=== PATIENT | male | born 1960 | race Caucasian/White ===

== ENCOUNTER 2018-08-09 15:30 | Inpatient (IN) | payer BC, OTHER ==
[2018-08-09] MEDS ORDERED: NS 0.9% 1000 ML*IV.FLUID IV ONE (16:13)
[2018-08-09] MEDS ORDERED: Vancomycin(*) 1,000 MG in NS 0.9% 250 ML* 250 ML IVPB ONE (16:14)
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
[2018-08-09 16:45] LABS: ABS Basophils 0 10^3/ul (0-0.2); ABS Eosinophils 0 10^3/ul (0-0.6); ABS Lymphocytes 0.3 10^3/ul (1.0-4.8); ABS Monocytes 0.5 10^3/ul (0-0.8); ABS Neutrophils 6.6 10^3/ul (1.5-7.7); ABS Nucleated RBC 0 10^3/ul; Eosinophil % 0.1 % (0-6); Hematocrit 40 % (42-52); Hemoglobin 13.2 g/dl (14.0-18.0); Lymphocyte % 3.7 % (25-47); Mean Corpuscular HGB Conc 33 g/dl (31-36); Mean Corpuscular Hemoglobin 25 pg (27-31); Mean Corpuscular Volume 77 fL (80-94); Mean Platelet Volume 6.3 um3 (7.4-10.4); Nucleated Red Blood Cells % 0; Platelet Count 192 10^3/ul (150-450); Red Blood Count 5.19 10^6/ul (4.00-5.40); Red Cell Distribution Width 15 % (10.5-15); White Blood Count 7.4 10^3/ul (3.5-10.8)
[2018-08-09 16:51] LABS: INR 1.25 (0.77-1.02)
[2018-08-09 17:02] LABS: EGFR Non-African American 118.9 (>60)
[2018-08-09] MEDS ORDERED: Acetaminophen TAB* 325 MG PO ONE (17:57)
[2018-08-09] MEDS ORDERED: Al Hydrox/Mg Hydrox/Simet LIQ* 30 ML UDC PO PRN (18:50)
[2018-08-09] MEDS ORDERED: Acetaminophen TAB* 325 MG PO PRN (18:50)
[2018-08-09] MEDS ORDERED: Ondansetron INJ* 2 MG/ML VIAL IV PRN (19:22)
[2018-08-09] MEDS ORDERED: Cefepime 2 GM in Dextrose(*) 2 GM/50 ML BAG IV SCH (20:00)
[2018-08-09 20:18] LABS: Urine Appearance Clear; Urine Blood Negative (Negative); Urine Color Yellow; Urine Ketones 1+ (Negative); Urine Protein Negative (Negative); Urine Specific Gravity 1.025 (1.010-1.030); Urine Urobilinogen Negative (Negative)
[2018-08-09] MEDS ORDERED: Gadoteridol* (CONTRAST) 279.3 MG/ML 10 ML IV ONE (20:44)
[2018-08-09] MEDS: NS 0.9% 1000 ML* 1,000 ML IV SCH (21:59)
[2018-08-09] MEDS: Cefepime 2 GM in Dextrose(*) 2 GM/50 ML BAG IV SCH (21:59)
[2018-08-09] MEDS ORDERED: Heparin VIAL(*) 5000 UNITS/ML VIAL (FIVE THOUSAND) SUBCUT SCH (22:00)
--- NOTE | 2018-08-09 22:06 | RAD ---
EXAM: MR Left Lower Extremity Without And With Intravenous Contrast, Foot CLINICAL HISTORY: 58 years old, male; Signs and symptoms; Cellulitis and other: Necrotic toe; Toes; Left; Patient HX: Worsening fever, n/v, and loss of appetite for past 3 days. Has a blister, redness, and swelling in left great toe with cellulitis of elft lower leg; Additional info: Necrotic toe / celulitis R/O osteomyelitis TECHNIQUE: Multiplanar magnetic resonance images of the left foot without and with intravenous contrast. CONTRAST: 18 mL of PROHANCE administered intravenously. COMPARISON: [facility] WO MRI LOWER EXTREMITY LEFT W/O 04/11/2018 7:06 AM FINDINGS: LIGAMENTS: Bones/joints: New transverse defect through the distal neck proximal phalanx of the great toe which may be pathologic fracture or postsurgical. Abnormal marrow signal involving majority of the proximal phalanx and all of the distal phalanx consistent with osteomyelitis. Surrounding cellulitis, and 8mm probable abscess interposed between the proximal and distal phalanx dorsally. Artifact surrounding the mid and distal phalanx of the third toe suggesting soft tissue gas less likely surgical or foreign body artifact. Cannot visualize the distal end of the distal phalanx and this may be resected or partially resorbed. Cannot exclude osteomyelitis the phalanx here. Soft tissues: Diffuse subcutaneous edema most pronounced dorsum of the foot. Some of this may be passive edema and some may be cellulitis. IMPRESSION: 1. New transverse defect through the distal neck proximal phalanx of the great toe which may be pathologic fracture or postsurgical. Abnormal marrow signal involving majority of the proximal phalanx and all of the distal phalanx consistent with osteomyelitis. Surrounding cellulitis, and 8mm probable abscess interposed between the proximal and distal phalanx dorsally. 2. Artifact surrounding the mid and distal phalanx of the third toe suggesting soft tissue gas less likely surgical or foreign body artifact. Cannot visualize the distal end of the distal phalanx and this may be resected or partially resorbed. Cannot exclude osteomyelitis distal phalanx here. 3. Diffuse subcutaneous edema most pronounced dorsum of the foot. Some of this may be passive edema and some may be cellulitis. To contact [facility] with a general question: [facility] - [phone] For direct physician to physician contact: Physician Hotline - [phone] [facility] (ad Facility ID #[id number])
--- NOTE | 2018-08-09 22:31 | HP ---
AMENDED REPORT NOW INCLUDES COSIGNER DESIGNATION CC: Dr. Peters; Dr. Carmen; Dr. Perez * HISTORY AND PHYSICAL: DATE OF ADMISSION: 08/09/18 PROVIDER: Debbie Green NP PRIMARY CARE PROVIDER: Dr. Perez. ATTENDING PHYSICIAN WHILE IN THE HOSPITAL: Dr. Guillermina Reeves * (dictated by Debbie Green NP). CHIEF COMPLAINT: 1. Fever. 2. Left foot and leg pain. HISTORY OF PRESENT ILLNESS: Mr. Andrews is a 58-year-old male who carries a past medical history significant for hypertension and diabetes, who presented to the emergency room after an episode of nausea and vomiting. The patient states that he was at work and started not feeling well, so he left work and went to [employer] and pulled into the parking lot and then started vomiting , so he was brought to the emergency room by EMS. The patient reports today he has had a 2 to 3-day history of feeling nauseated and reports that he started having fevers today. He denies any recent sick contacts. Denies any abdominal pain. Denies any diarrhea. Denies chest pain. Denies shortness of breath, chills. Denies cough or congestion. The patient reports that he noticed redness and swelling to his left third toe approximately 2 days ago and redness to his left lower leg. He denies any other symptoms. Due to his fever on admission to the emergency room and left lower extremity cellulitis, we were asked by the emergency room to see and evaluate him for admission. PAST MEDICAL HISTORY: Significant for: 1. Hypertension. 2. Diabetes, type 2. 3. Osteomyelitis of the left great toe in March of 2018. PAST SURGICAL HISTORY: 1. Tonsillectomy. 2. Cholecystectomy. 3. Stomach blockage. MEDICATIONS: 1. Farxiga 5 mg p.o. daily. 2. Losartan 50 mg p.o. daily. 3. Metformin 1000 mg p.o. b.i.d. 4. Glipizide 5 mg p.o. b.i.d. ALLERGIES TO MEDICATIONS: No known drug allergies. FAMILY HISTORY: Hypertension. SOCIAL HISTORY: Denies any smoking. Does report rare alcohol use. Denies any illicit drug use. Surrogate decision maker in the event he is unable to make his own decision is his daughterNieves. Her phone number is [phone] or his brother, Richard Andrews. His phone number is [phone]. He is a full-code. REVIEW OF SYSTEMS: There is documented fever of 101.5. He denies any significant weight change. Denies any double vision, ear drainage. Denies any rhinorrhea or sore throat. He denies any chest pain, orthopnea, nocturnal dyspnea. There was no abdominal pain. He denies nausea. He does report vomiting x1 today. Denies any dysuria or urinary frequency. Denies any seizures or loss of consciousness. He does report swelling and redness to his left foot and left lower leg. He denies any hematuria or dysuria. Denies any shortness of breath, hemoptysis, cough, or congestion. Denies any depression or anxiety. A review of 14 systems was completed and all others are negative. PHYSICAL EXAMINATION GENERAL: At this time, Mr. Andrews is a 58-year-old male. He appears flushed sitting on the stretcher in the emergency room. He does not appear to be in any acute distress. VITAL SIGNS: Blood pressure 150/82, heart rate is 126, respirations are 21, O2 saturation 97% on room air, temperature is 101.5. HEENT: Head is atraumatic, normocephalic. Eyes: EOMs are intact. Sclerae are anicteric and not pale. Oral mucosa appeared to be moist. NECK: Supple. LUNGS: Clear to auscultation bilaterally. No wheezes, rales or rhonchi. HEART: S1, S2. He has tachycardia with a regular rate and rhythm. No murmurs , rubs, or gallops. ABDOMEN: Soft and nontender. Bowel sounds are present x4. EXTREMITIES: Pulses are +2 bilaterally. He is able to move all 4 extremities with 5/5 strength. NEUROLOGIC: He is awake, alert, and oriented x3. Tongue is midline. Speech is clear. There are no gross focal deficits. SKIN: Left lower extremity is noted to be red, warm to touch. His left foot with erythema and mild edema. His left great toe is black with necrotic foul- smelling odor, appears moist;,no drainage. DIAGNOSTIC STUDIES AND LABORATORY DATA: WBCs were 7.4, RBCs 5.19, hemoglobin 13.2, hematocrit was 40, platelet count was 192. INR was 1.25. Sodium 136, potassium 4.0, chloride 103, carbon dioxide was 23. Anion gap was 10. BUN was 8 and creatinine 0.68. Glucose was 146. Lactic acid 1.0. Calcium 8.5. ASTs were 13 and ALTs were 14. Troponin was 0.01. ESR and CRP are pending. Blood cultures are pending. EKG is pending at this time. Chest x-ray is also pending. ASSESSMENT AND PLAN: Mr. Andrews is a 58-year-old male who presented to the emergency room today with complaints of nausea, fever, and found to have cellulitis and necrotic third toe on the left lower extremity. He will be admitted inpatient for: 1. Cellulitis with necrotic third toe on the left. We will start him on vancomycin 1000 mg and then dosing per pharmacy. He will be given cefepime 2 g IV q.12 hours. I will get an MRI of his left lower extremity to evaluate for osteomyelitis. He recently in April of 2018 had an ASIYA. Radiologist impression was mild peripheral arterial occlusive disease, greater on the left than the right. I have also consulted Dr. Peters from Orthopedics for evaluation of his necrotic toe. I will consult Dr. Carmen in the morning from Infectious Disease. At this time, blood cultures are pending. 2. Systemic inflammatory response syndrome. The patient does meet systemic inflammatory response syndrome criteria. I suspect this is related to the cellulitis and necrotic toe on the left. He is meeting systemic inflammatory response syndrome criteria by evidence by tachycardia, fever of 101.5 and respirations above 20. We have obtained blood cultures. We will continue on vanco and cefepime. We will repeat a CBC and BMP in the morning. ESR and CRPs are currently pending. I will give him IV hydration overnight, normal saline at 100 cc per hour. 3. Hypertension. He will continue on losartan 50 mg p.o. daily. 4. Diabetes. I will place him on Accu-Checks a.c. with lispro sliding scale. I have ordered hemoglobin A1c for the a.m. 5. DVT prophylaxis. I will give him heparin subcu 5000 units x1 dose tonight, be stopped after midnight for possible surgery tomorrow. 6. FEN. He will be placed on heart-healthy caffeine okay diet. He will be n.p.o. after midnight for possible surgery on tomorrow. 7. Code status. He is a full code. TIME SPENT: Time spent on this admission was 60 minutes, greater than half that time was spent face to face with the patient, obtaining my history and physical. The other half of the time was spent going over my plan of care and implementing my plan of care. I have discussed this with my attending, Dr. Guillermina Reeves, she is in agreement with my plan. DEBBIE GREEN, BUYING INTERN [id number]/CPS #: [id number] GIOVANNI
[2018-08-10 05:18] LABS: ABS Basophils 0 10^3/ul (0-0.2); ABS Eosinophils 0 10^3/ul (0-0.6); ABS Lymphocytes 0.6 10^3/ul (1.0-4.8); ABS Monocytes 0.7 10^3/ul (0-0.8); ABS Neutrophils 4.4 10^3/ul (1.5-7.7); ABS Nucleated RBC 0 10^3/ul; Eosinophil % 0.4 % (0-6); Hematocrit 36 % (42-52); Hemoglobin 11.9 g/dl (14.0-18.0); Lymphocyte % 11.1 % (25-47); Mean Corpuscular HGB Conc 33 g/dl (31-36); Mean Corpuscular Hemoglobin 25 pg (27-31); Mean Corpuscular Volume 77 fL (80-94); Mean Platelet Volume 6.2 um3 (7.4-10.4); Nucleated Red Blood Cells % 0.1; Platelet Count 168 10^3/ul (150-450); Red Cell Distribution Width 15 % (10.5-15); White Blood Count 5.8 10^3/ul (3.5-10.8)
[2018-08-10 05:27] LABS: INR 1.26 (0.77-1.02)
[2018-08-10 05:39] LABS: EGFR Non-African American 142.9 (>60)
[2018-08-10] MEDS: NS 0.9% 1000 ML* 1,000 ML IV SCH (07:33)
--- NOTE | 2018-08-10 07:47 | RAD ---
INDICATION: Sepsis. COMPARISON: Comparison is made with a prior study from October 22, 2017. TECHNIQUE: A portable view of the chest was obtained. FINDINGS: Cardiac and mediastinal contours appear to be within normal limits. The lungs are underinflated and grossly clear. No pleural effusion is seen. IMPRESSION: NO EVIDENCE FOR ACUTE DISEASE. R0
[2018-08-10] MEDS: Cefepime 2 GM in Dextrose(*) 2 GM/50 ML BAG IV SCH (10:20)
[2018-08-10] MEDS: Losartan TAB* 25 MG PO SCH (10:20)
[2018-08-10] MEDS: Piperacillin/Tazobac ADVAN(*) 3.375 GM in NS 0.9% 100 ML* 100 ML IVPB SCH ×3 (12:38→23:02)
--- NOTE | 2018-08-10 14:01 | PN ---
Progress Note - Progress Note Date of Service: 08/10/18 SOAP: Subjective: I created a note on 08/10/18 for this patient. It was saved without any contents. I then rewrote this note in the AM of 08/11/18 and its again was resaved minus any content. I will now write an abbreviated note for the 3rd time. Patient presented with a necrotic left 3rd toe. History left 1st toe osteo and ulcer treated by Nella, right 1st toe osteo treated by Nick. Objective: LLE: - 3rd toe black, necrotic, smelly, soft - 1st toe intact, no skin breaks, no TTP - Sensation intact but reduced in forefoot and toes - CR < 2 sec but DP, PT not easily palpable MRI- left 3rd toe fluid, liquefaction, osteo; 1st toe osteo Selected Entries 08/10/18 07:47 Temperature 99.0 F Pulse Rate 105 Respiratory 16 Rate Blood Pressure 115/60 (mmHg) O2 Sat by Pulse 98 Oximetry Laboratory Tests 08/09/18 08/10/18 08/10/18 20:17 04:42 04:42 WBC 5.8 Neut % (Auto) 75.7 ESR 43 H Hemoglobin A1c 10.0 H Assessment: HD 2 Left 3rd toe necrosis, osteomyelitis Left 1st toe chronic osteomyelitis DM Plan: - to OR for left 3rd toe amputation - NPO - ID recs for antibiotics - Pathology, cultures intraop
--- NOTE | 2018-08-10 14:58 | CONS ---
CONSULTATION REPORT: DATE OF ADMISSION: 08/09/18 DATE OF CONSULTATION: ATTENDING ORTHOPEDIC PROVIDER: Dr. Abdulaziz Peters. CHIEF COMPLAINT: Left foot third toe infection. HISTORY OF PRESENT ILLNESS: The patient is a 58-year-old male, with a past medical history of hypertension and diabetes. 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 The patient states that he has had a red progressing to black left middle toe for 2 to 3 days and that prior to this he has not had any pain, abrasions or discoloration of this toe. He reports that he has not had any other toe infections, though upon talking with infectious disease, he has had infection of both great toes in the past, for which he has been treated. The patient has not taken his temperature at home though has felt febrile. Confirms nausea and vomiting. The patient denies current feeling of fever, chills, dizziness, diarrhea or nausea. The patient has had surgery in the past at which time he tolerated anesthesia well. He has no history of heart attacks, stroke, or blood clot. He has been NPO since midnight last night. PAST MEDICAL HISTORY: Significant for hypertension, diabetes, osteomyelitis of the left great toe. PAST SURGICAL HISTORY: Includes tonsillectomy, cholecystectomy, stomach blockage. He has no negative side effects from anesthesia in the past. HOME MEDICATIONS: Glipizide 5 mg p.o. b.i.d., Farxiga 5 mg p.o. daily, losartan 50 mg p.o. daily, metformin 1000 mg p.o. b.i.d. SOCIAL HISTORY: The patient works at [employer]. He lives at home alone. He does not drink alcohol. He does not use any drugs. He does use alcohol rarely. REVIEW OF SYSTEMS: General: History positive for recent fever. Denies chills. Denies recent illness. HEENT: No headache. No head trauma. Cardio: No irregular heartbeats, chest pain, or history of KS. Respiratory: No shortness of breath or cough. No history of asthma, COPD, or sleep apnea. Abdomen: No abdominal pain or diarrhea. Does have history of nausea and vomiting within the past two days. : No dysuria. No history of BPH. Musculoskeletal: Left lower extremity with a red progressing to black toe, but no pain. Neuro: The patient has decreased sensation of bilateral lower extremities of the feet. He states that he does have some sensation, though it is decreased. Hematology: No history of blood clot. Skin: Left third toe black in coloration. PHYSICAL EXAM: General: The patient is well appearing, in no acute distress. He is able to carry on appropriate conversation. Vital Signs: Temperature 99.0 , pulse rate 105, respiratory rate 16, oxygen saturation 98%, blood pressure 115 /60. HEENT: Normocephalic, atraumatic. Extraocular movements intact. The patient has moist mucous membranes. Poor dentition. Cardiac: S1, S2. Regular rate and rhythm. Respiratory: Clear to auscultation bilaterally without wheezes, rales, or rhonchi. Abdomen: Bowel sounds normoactive in all 4 quadrants. Nontender to palpation. No guarding. No rigidity. Upper Extremities: Skin envelope intact. No obvious deformities. Nontender to palpation. Active flexion and extension of the digits, wrists, and elbows without associated pain. Shoulders with nonpainful active forward flexion and abduction. Left Lower Extremity: No obvious bony deformity. The patient is nontender to palpation throughout the left lower extremity. Active flexion and extension of ankle, knee, and hip without pain. His left third toe is malodorous and black in coloration. It is weeping at the interdigital spaces. He is nontender to palpation. There is no proximally tracking erythema. Remainder of the toes with brisk capillary refill less than 2 seconds. DP pulses 2+. Right lower extremity skin envelope intact. No obvious deformity. Active flexion and extension at hip, knee, and ankle. DIAGNOSTIC STUDIES/LAB DATA: MRI of the left lower extremity impression per Radiology, new transverse defect at the distal neck of the proximal phalanx of the great toe which may have been pathologic fracture, postsurgical, abnormal bone signal involving the majority of the proximal phalanx and all of the distal phalanx consistent with osteomyelitis, surrounding cellulitis, an 8 mm probable abscess interposed between the proximal and distal phalanx dorsally with 2 artifacts surrounding the mid and distal phalanx of the third toe suggesting soft tissue gas, less likely surgical or foreign body artifact. Cannot visualize the distal end of the distal phalanx, may be resected or partially resorbed, cannot exclude osteomyelitis of the distal phalanx and three diffuse subcu edema, most pronounced in the dorsum of the foot. White blood cell count 5.8, hemoglobin 11.9, hematocrit 36, INR 1.26. Sodium 138, potassium 4.0, GFR 142, A1c 10.0, BUN is 8, creatinine 0.58. IMPRESSION: Wet gangrene of the third left toe, diabetes mellitus as well as hypertension. PLAN/RECOMMENDATIONS: The patient needs to be NPO. Anticoagulation needs to be held today. He will be on Zosyn per infectious disease. He will be brought to the operating room with Dr. Peters today for amputation of the left third toe which he is in understanding of and agreeable to. Medicine to note optimization. SOPHIE PROCTOR [id number]/CPS #: [id number] MTDD
--- NOTE | 2018-08-10 16:15 | PN ---
Subjective Date of Service: 08/10/18 Interval History: No complaints, resting in bed, Denies chest pain or shortness of breath. Denies abd pain n/v/d. Family History: Unchanged from Admission Social History: Unchanged from Admission Past Medical History: Unchanged from Admission Objective Active Medications: Acetaminophen (Tylenol Tab*) 650 mg PO Q4H PRN PRN Reason: FEVER/PAIN Al Hydrox/Mg Hydrox/Simethicone (Maalox Plus*) 30 ml PO Q6H PRN PRN Reason: INDIGESTION Sodium Chloride (Ns 0.9% 1000 Ml*) 1,000 mls @ 100 mls/hr IV PER RATE [facility] Last Admin: 08/10/18 07:33 Dose: 100 mls/hr Piperacillin Sod/Tazobactam (Sod 3.375 gm/ Sodium Chloride) 100 mls @ 25 mls/ hr IVPB Q8H [facility] Last Admin: 08/10/18 12:38 Dose: 25 mls/hr Losartan Potassium (Cozaar Tab*) 50 mg PO DAILY [facility] Last Admin: 08/10/18 10:20 Dose: 50 mg Ondansetron HCl (Zofran Inj*) 4 mg IV Q6H PRN PRN Reason: NAUSEA Oxycodone/Acetaminophen (Percocet 5/325 Tab*) 1 tab PO Q4H PRN PRN Reason: Pain Oxygen Devices in Use Now: None Appearance: alert, resting in bed, no acute distress Eyes: No Scleral Icterus, PERRLA Ears/Nose/Mouth/Throat: Clear Oropharnyx, Mucous Membranes Moist Neck: NL Appearance and Movements; NL JVP, Trachea Midline Respiratory: Symmetrical Chest Expansion and Respiratory Effort, Clear to Auscultation Cardiovascular: NL Sounds; No Murmurs; No JVD, No Edema Abdominal: NL Sounds; No Tenderness; No Distention Extremities: No Edema, No Clubbing, Cyanosis Skin: - - erythema and swelling noted to the left leg and foot, left 3rd toe black discoloration, pedal pulses +2 bilat. Neurological: Alert and Oriented x 3 Nutrition: Taking PO's Result Diagrams: 08/10/18 04:42 08/10/18 04:42 Microbiology and Other Data: Microbiology 08/09/18 20:05 Influenza Types A,B Antigen - Final Nasopharyngeal Specimen received for Influenza A/B Molecular testing Assess/Plan/Problems-Billing Assessment: Mr. Andrews is a 58 y.o male with a past medical hx of DM and HTN who presented to the ER with nausea, fever left leg redness. Found to have necrotic 3rd toe with left foot and leg cellulitis. - Patient Problems (1) SIRS (systemic inflammatory response syndrome) Current Visit: Yes Status: Acute Code(s): R65.10 - SIRS OF NON-INFECTIOUS ORIGIN W/O ACUTE ORGAN DYSFUNCTION SNOMED Code(s): 986678288 Comment: resolving - patient met SIRS criteria on admission with tachycardia, tachypneia and fever 101.5 - suspect this is related to necrotic left 3rd toe and cellulitis (2) Necrotic toes Current Visit: Yes Status: Acute Code(s): I96 - GANGRENE, NOT ELSEWHERE CLASSIFIED SNOMED Code(s): 244824736 Comment: Ortho consulted - will go to the OR today for amputation - MRI of the foot shows osteomyelitis of the great toe and GAS in the 3 rd toe with surrounding edema (3) Cellulitis Current Visit: Yes Status: Acute Code(s): L03.90 - CELLULITIS, UNSPECIFIED SNOMED Code(s): 906747769 Comment: ID consulted - recommendation appriecated antibiotics changed to zosyn (4) Diabetes Current Visit: Yes Status: Acute Code(s): E11.9 - TYPE 2 DIABETES MELLITUS WITHOUT COMPLICATIONS SNOMED Code(s): 81086538 Comment: finger sticks AC Lispro sliding scale (5) HTN (hypertension) Current Visit: Yes Status: Acute Code(s): I10 - ESSENTIAL (PRIMARY) HYPERTENSION SNOMED Code(s): 03951538 Comment: continue losartan (6) DVT prophylaxis Current Visit: Yes Status: Acute Code(s): FFM3199 - SNOMED Code(s): 655015626 Comment: HSQ 1 dose last PM - held after Midnight d/t surgery today (7) Full code status Current Visit: Yes Status: Acute Code(s): Z78.9 - OTHER SPECIFIED HEALTH STATUS SNOMED Code(s): 813173660 Status and Disposition: inpatient
[2018-08-10] MEDS ORDERED: Dextrose 50% Syringe 50 ML* 25 GM/50 ML SYRINGE IV PUSH PRN (16:23)
[2018-08-10] MEDS: Insulin LISPRO* 1 UNITS UNIT SUBCUT SCH (16:51)
--- NOTE | 2018-08-10 17:10 | CONS ---
CONSULTATION REPORT: DATE OF CONSULT: 08/10/18 REQUESTING PROVIDER: Debbie Green NP CONSULTING SERVICE: Infectious Disease. REASON FOR CONSULTATION: Foot infection. IMPRESSION: 1. Left foot wet gangrene with cellulitis and myositis likely in the setting of severe microvascular disease. He does have a pulse and reasonable ASIYA from a few weeks ago. 2. Type 2 diabetes without control. 3. Peripheral neuropathy. RECOMMENDATION: 1. Change cefepime to Zosyn, to add anaerobic coverage, which was predominantly cause of the infection and wet gangrene. He is going to have amputation of the toe later today. 2. Diabetes management consult. HISTORY OF PRESENT ILLNESS: This is a 58-year-old diabetic with left foot infection. His symptoms started a few days ago when the left third toe turned reddish and then after a day or two it started to turn black, at that point he developed nausea, fatigue, malaise, worked his way over to an EMT and was brought to the hospital yesterday. CRP is 116. He was febrile, was normotensive. He was seen by Orthopedics, planned for amputation today. He has been on antibiotics, feeling a little bit better, less nauseous today. He had recently undergone treatment for left great toe osteomyelitis, had declined surgical evaluation at that time, but MRI here does show defect to the distal neck of the proximal phalanx, which could be a pathologic fracture I suspect after the episode of osteomyelitis. He has not noticed any change in the great toe over the last few days. PAST MEDICAL HISTORY: 1. Type 2 diabetes. 2. Peripheral neuropathy. 3. Right great toe osteomyelitis and left great toe osteomyelitis. 4. Hypertension. MEDICATIONS: 1. Tylenol. 2. Cefepime 2 g every 12 hours. 3. Oxycodone as needed. ALLERGIES: No known drug allergies. FAMILY HISTORY: No recurrent infections. SOCIAL HISTORY: He lives in [place], works at [employer], retired from the . Nonsmoker. REVIEW OF SYSTEMS: All negative for 14-point review of systems except as noted above in the history of present illness. PHYSICAL EXAM: Vital Signs: Temperature of 37, heart rate of 100, respiratory rate 16, blood pressure 115/60, oxygen saturation 98% on room air. In general, he is awake, not in distress. He is diaphoretic. HEENT: There is no conjunctival hemorrhage. Oropharynx without lesions. Neck is supple without mass. Heart is regular rate and rhythm without murmurs, rubs, or gallops. Lungs are clear to auscultation bilaterally. Abdomen: Soft, nontender, nondistended. There are bowel sounds present. Skin: There is no rash or splinter hemorrhage. Musculoskeletal: There is no spine tenderness to palpation. In the left foot, there is diffuse edema through the lower leg with trace erythema. There is a foul odor. The third toe is black with some serous and purulent drainage. LABORATORY DATA: White blood cell count 5, hemoglobin 11, platelets 168. Creatinine is 0.6. CRP 116. Please see impressions and recommendations as outlined above. Thank you for asking me to see Mr. Andrews in consultation. [id number]/[facility] #: [id number] MTDKeri
[2018-08-10] MEDS ORDERED: Bupivacaine 0.25% SDV* 30 ML ONE (19:54)
[2018-08-10] MEDS ORDERED: fentaNYL* 50 MCG/ML 2 ML VIAL (100 MCG VIAL) ONE (20:00)
[2018-08-10] MEDS ORDERED: Midazolam* 1 MG/ML 5 ML VIAL (5 MG) ONE (20:00)
[2018-08-10] MEDS ORDERED: ceFAZolin 2 GM PREMIX in ORs 2 GM/50 ML BAG IVPB ONE (20:09)
[2018-08-10] MEDS ORDERED: Naloxone* 0.4 MG/ML 1 ML VIAL IV PRN (20:12)
[2018-08-10] MEDS ORDERED: Propofol* 10 MG/ML 20 ML BTL IV PUSH ONE (20:49)
[2018-08-11] MEDS: oxyCODONE/Acetamin 5/325 MG* TAB PO PRN ×2 (00:55→09:25)
[2018-08-11] MEDS: Piperacillin/Tazobac ADVAN(*) 3.375 GM in NS 0.9% 100 ML* 100 ML IVPB SCH ×2 (06:11→14:38)
[2018-08-11] MEDS: Losartan TAB* 25 MG PO SCH (09:25)
[2018-08-11] MEDS: Insulin LISPRO* 1 UNITS UNIT SUBCUT SCH ×3 (09:26→17:32)
[2018-08-11] MEDS: NS 0.9% 1000 ML* 1,000 ML IV SCH (14:38)
[2018-08-11] MEDS ORDERED: Vancomycin per Pharmacy* NOTE FOLLOW UP PRN (14:43)
[2018-08-11] MEDS ORDERED: VANCOMYCIN 1500 MG X 1 DOSE, THEN PER PHARMACY PROTOCOL IVPB ONE ×2 (15:00)
--- NOTE | 2018-08-11 15:24 | PN ---
Progress Note - Progress Note Date of Service: 08/11/18 SOAP: Subjective: []Patient seen and examined at bedside. He feels much better than he did pre- op. Denies CP, SOB, dizziness, nausea. Objective: []General: Well appearing, NAD LLE: Left foot dressing CDI without. Exposed toes with brisk capillary refill, sensation intact and able to wiggle all remaining digits without difficulty. No erythema proximal or distal to splint. Calves supple and nontender without erythema, edema or palpable cords Assessment: []POD 1 sp Left 3rd toe amp 08/10 Plan: []Heel WB heparin while in house Follow cultures- May DC when final abx needs are determined . + for MRSA and MSSA at this time Vital Signs Temp 98.1 F 08/11/18 11:23 Pulse 103 08/11/18 11:23 Resp 16 08/11/18 11:23 BP 131/72 08/11/18 11:23 Pulse Ox 97 08/11/18 11:23 Intake & Output 08/10/18 08/11/18 08/11/18 18:59 06:59 18:59 Intake Total 357 073 4573 Output Total 575 625 450 Balance 347 -165 1180 Intake: IV Fluids 867 100 938 LR 100 NS (0.9%) 867 938 IVPB 55 110 332 ABX - CEFEPIME 55 ABX - ZOSYN 110 332 Oral 0 250 360 Output: Urine 575 625 450 Other: Estimated Void Medium # Voids 1 Laboratory Last Values WBC 5.8 10^3/ul (3.5-10.8) 08/10/18 04:42 RBC 4.70 10^6/ul (4.00-5.40) 08/10/18 04:42 Hgb 11.9 g/dl (14.0-18.0) L 08/10/18 04:42 Hct 36 % (42-52) L 08/10/18 04:42 MCV 77 fL (80-94) L 08/10/18 04:42 MCH 25 pg (27-31) L 08/10/18 04:42 MCHC 33 g/dl (31-36) 08/10/18 04:42 RDW 15 % (10.5-15) 08/10/18 04:42 Plt Count 168 10^3/ul (150-450) 08/10/18 04:42 MPV 6.2 um3 (7.4-10.4) L 08/10/18 04:42 Neut % (Auto) 75.7 % (38-83) 08/10/18 04:42 Lymph % (Auto) 11.1 % (25-47) L 08/10/18 04:42 [place]upe % (Auto) 12.5 % (0-7) H 08/10/18 04:42 Eos % (Auto) 0.4 % (0-6) 08/10/18 04:42 Baso % (Auto) 0.3 % (0-2) 08/10/18 04:42 Absolute Neuts (auto) 4.4 10^3/ul (1.5-7.7) 08/10/18 04:42 Absolute Lymphs (auto) 0.6 10^3/ul (1.0-4.8) L 08/10/18 04:42 Absolute Monos (auto) 0.7 10^3/ul (0-0.8) 08/10/18 04:42 Absolute Eos (auto) 0 10^3/ul (0-0.6) 08/10/18 04:42 Absolute Basos (auto) 0 10^3/ul (0-0.2) 08/10/18 04:42 Absolute Nucleated RBC 0 10^3/ul 08/10/18 04:42 Nucleated RBC % 0.1 08/10/18 04:42 ESR 43 mm/Hr (0-20) H 08/09/18 20:17 INR (Anticoag Therapy) 1.26 (0.77-1.02) H 08/10/18 04:42 Sodium 138 mmol/L (135-145) 08/10/18 04:42 Potassium 4.0 mmol/L (3.5-5.0) 08/10/18 04:42 Chloride 107 mmol/L (101-111) 08/10/18 04:42 Carbon Dioxide 24 mmol/L (22-32) 08/10/18 04:42 Anion Gap 7 mmol/L (2-11) 08/10/18 04:42 BUN 8 mg/dL (6-24) 08/10/18 04:42 Creatinine 0.58 mg/dL (0.67-1.17) L 08/10/18 04:42 Est GFR ( Amer) 172.9 (>60) 08/10/18 04:42 Est GFR (Non-Af Amer) 142.9 (>60) 08/10/18 04:42 BUN/Creatinine Ratio 13.8 (8-20) 08/10/18 04:42 Glucose 87 mg/dL (70-100) 08/10/18 04:42 POC Glucose (mg/dL) 286 mg/dL (70-100) H 08/11/18 12:00 Hemoglobin A1c 10.0 % (4.0-5.6) H 08/10/18 04:42 Lactic Acid 0.6 mmol/L (0.5-2.0) 08/09/18 20:17 Calcium 7.7 mg/dL (8.6-10.3) L 08/10/18 04:42 Total Bilirubin 0.80 mg/dL (0.2-1.0) 08/09/18 16:33 AST 13 U/L (13-39) 08/09/18 16:33 ALT 14 U/L (7-52) 08/09/18 16:33 Alkaline Phosphatase 75 U/L (34-104) 08/09/18 16:33 Troponin I 0.01 ng/mL (<0.04) 08/09/18 16:33 C-Reactive Protein 116.19 mg/L (<8.01) H 08/09/18 20:17 Total Protein 6.6 g/dL (6.4-8.9) 08/09/18 16:33 Albumin 3.8 g/dL (3.2-5.2) 08/09/18 16:33 Globulin 2.8 g/dL (2-4) 08/09/18 16:33 Albumin/Globulin Ratio 1.4 (1-3) 08/09/18 16:33 Urine Color Yellow 08/09/18 20:05 Urine Appearance Clear 08/09/18 20:05 Urine pH 5.0 (5-9) 08/09/18 20:05 Ur Specific Barclay 1.025 (1.010-1.030) 08/09/18 20:05 Urine Protein Negative (Negative) 08/09/18 20:05 Urine Ketones 1+ (Negative) A 08/09/18 20:05 Urine Blood Negative (Negative) 08/09/18 20:05 Urine Nitrate Negative (Negative) 08/09/18 20:05 Urine Bilirubin Negative (Negative) 08/09/18 20:05 Urine Urobilinogen Negative (Negative) 08/09/18 20:05 Ur Leukocyte Esterase Negative (Negative) 08/09/18 20:05 Urine Glucose 3+(>=500 mg/dl) (Negative) A 08/09/18 20:05 Influenza A (Rapid) Negative (Negative) 08/09/18 21:18 Influenza B (Rapid) Negative (Negative) 08/09/18 21:18
[2018-08-11] MEDS: Heparin VIAL(*) 5000 UNITS/ML VIAL (FIVE THOUSAND) SUBCUT SCH (16:29)
[2018-08-11] MEDS: cefTRIAXone(*) 1 GM in NS 0.9% 50 ML* 50 ML IVPB SCH (16:31)
[2018-08-11 16:45] LABS: ABS Basophils 0 10^3/ul (0-0.2); ABS Eosinophils 0 10^3/ul (0-0.6); ABS Lymphocytes 0.5 10^3/ul (1.0-4.8); ABS Monocytes 0.4 10^3/ul (0-0.8); ABS Neutrophils 3.3 10^3/ul (1.5-7.7); ABS Nucleated RBC 0 10^3/ul; Hematocrit 37 % (42-52); Hemoglobin 12.4 g/dl (14.0-18.0); Lymphocyte % 12.1 % (25-47); Mean Corpuscular HGB Conc 33 g/dl (31-36); Mean Corpuscular Hemoglobin 25 pg (27-31); Mean Corpuscular Volume 76 fL (80-94); Mean Platelet Volume 6.2 um3 (7.4-10.4); Nucleated Red Blood Cells % 0.1; Platelet Count 186 10^3/ul (150-450); Red Blood Count 4.86 10^6/ul (4.00-5.40); Red Cell Distribution Width 15 % (10.5-15); White Blood Count 4.3 10^3/ul (3.5-10.8)
[2018-08-11 16:55] LABS: INR 1.17 (0.77-1.02)
[2018-08-11 17:01] LABS: EGFR Non-African American 118.9 (>60)
[2018-08-11] MEDS: metroNIDAZOLE IV 500 MG/100ML* 500 MG/100 ML BAG IVPB SCH (17:03)
--- NOTE | 2018-08-11 17:32 | PN ---
Subjective Date of Service: 08/11/18 Interval History: Patient reports that he is feeling better today, reports mild throbbing in the left foot. Denies chest pain or shortness of breath. Denies chest pain or shortness of breath. Denies abd pain n/v/d. Family History: Unchanged from Admission Social History: Unchanged from Admission Past Medical History: Unchanged from Admission Objective Active Medications: Acetaminophen (Tylenol Tab*) 650 mg PO Q4H PRN PRN Reason: FEVER/PAIN Al Hydrox/Mg Hydrox/Simethicone (Maalox Plus*) 30 ml PO Q6H PRN PRN Reason: INDIGESTION Dextrose (D50w Syringe 50 Ml*) 12.5 gm IV PUSH .FOR FS < 60 - SS PRN PRN Reason: FS < 60 Heparin Sodium (Porcine) (Heparin Vial(*)) 5,000 units SUBCUT Q8H [facility] Last Admin: 08/11/18 16:29 Dose: 5,000 units Sodium Chloride (Ns 0.9% 1000 Ml*) 1,000 mls @ 100 mls/hr IV PER RATE [facility] Last Admin: 08/11/18 14:38 Dose: 100 mls/hr Metronidazole/Sodium Chloride (Flagyl 500 Mg Ivpb*) 500 mg in 100 mls @ 100 mls /hr IVPB Q12H [facility] Last Admin: 08/11/18 17:03 Dose: 100 mls/hr Ceftriaxone Sodium 1 gm/ (Sodium Chloride) 50 mls @ 200 mls/hr IVPB Q24H [facility] Last Admin: 08/11/18 16:31 Dose: 200 mls/hr Vancomycin HCl 1,000 mg/ (Sodium Chloride) 250 mls @ 166.667 mls/hr IVPB Q8H [facility] Insulin Human Lispro (Humalog*) 0 units SUBCUT [facility]; Protocol Last Admin: 08/11/18 14:39 Dose: 6 units Losartan Potassium (Cozaar Tab*) 50 mg PO DAILY [facility] Last Admin: 08/11/18 09:25 Dose: 50 mg Ondansetron HCl (Zofran Inj*) 4 mg IV Q6H PRN PRN Reason: NAUSEA Oxycodone/Acetaminophen (Percocet 5/325 Tab*) 1 tab PO Q4H PRN PRN Reason: Pain Last Admin: 08/11/18 09:25 Dose: 1 tab Pharmacy Consult (Vancomycin Per Pharmacy*) 1 note FOLLOW UP . PRN PRN Reason: PER PROTOCOL Pharmacy Profile Note (Vancomycin Trough Check) 1 note FOLLOW UP ONCE ONE Stop: 08/12/18 16:31 Vital Signs - 8 hr 08/11/18 08/11/18 08/11/18 10:00 11:23 11:30 Temperature 98.1 F Pulse Rate 103 Respiratory 16 16 16 Rate Blood Pressure 131/72 (mmHg) O2 Sat by Pulse 98 97 Oximetry 08/11/18 08/11/18 16:00 16:16 Temperature 98.1 F Pulse Rate 104 Respiratory 16 Rate Blood Pressure 132/79 (mmHg) O2 Sat by Pulse 98 98 Oximetry Oxygen Devices in Use Now: None Appearance: alert, oriented x3 , no acute distress Eyes: No Scleral Icterus Ears/Nose/Mouth/Throat: Clear Oropharnyx, Mucous Membranes Moist Neck: NL Appearance and Movements; NL JVP, Trachea Midline Respiratory: Symmetrical Chest Expansion and Respiratory Effort, Clear to Auscultation Cardiovascular: NL Sounds; No Murmurs; No JVD Abdominal: NL Sounds; No Tenderness; No Distention Extremities: No Edema, No Clubbing, Cyanosis Skin: No Rash or Ulcers Neurological: Alert and Oriented x 3 Nutrition: Taking PO's Result Diagrams: 08/11/18 16:37 08/11/18 16:37 Microbiology and Other Data: Microbiology 08/09/18 20:05 Influenza Types A,B Antigen - Final Nasopharyngeal Specimen received for Influenza A/B Molecular testing Assess/Plan/Problems-Billing Assessment: Mr. Andrews is a 58 y.o male with a past medical hx of DM and HTN who presented to the ER with nausea, fever left leg redness. Found to have necrotic 3rd toe with left foot and leg cellulitis. - Patient Problems (1) SIRS (systemic inflammatory response syndrome) Current Visit: Yes Status: Acute Code(s): R65.10 - SIRS OF NON-INFECTIOUS ORIGIN W/O ACUTE ORGAN DYSFUNCTION SNOMED Code(s): 746431290 Comment: resolved - patient met SIRS criteria on admission with tachycardia, tachypneia and fever 101.5- afebrile - suspect this is related to necrotic left 3rd toe and cellulitis (2) Necrotic toes Current Visit: Yes Status: Acute Code(s): I96 - GANGRENE, NOT ELSEWHERE CLASSIFIED SNOMED Code(s): 160871678 Comment: Ortho consulted - will go to the OR today for amputation - MRI of the foot shows osteomyelitis of the great toe and GAS in the 3 rd toe with surrounding edema - Wound culture positive for MRSA and MSSA (3) Cellulitis Current Visit: Yes Status: Acute Code(s): L03.90 - CELLULITIS, UNSPECIFIED SNOMED Code(s): 863460132 Comment: ID consulted - recommendation appriecated antibiotics changed from zosyn to ceftriaxone, flagyl and vancomycin as per ID recommendations - culture positive for MRSA and MSSA (4) Diabetes Current Visit: Yes Status: Acute Code(s): E11.9 - TYPE 2 DIABETES MELLITUS WITHOUT COMPLICATIONS SNOMED Code(s): 52390795 Comment: finger sticks AC Lispro sliding scale (5) HTN (hypertension) Current Visit: Yes Status: Acute Code(s): I10 - ESSENTIAL (PRIMARY) HYPERTENSION SNOMED Code(s): 39183516 Comment: stable continue losartan (6) DVT prophylaxis Current Visit: Yes Status: Acute Code(s): OPO4042 - SNOMED Code(s): 895248415 Comment: HSQ 1 dose last PM - held after Midnight d/t surgery today (7) Full code status Current Visit: Yes Status: Acute Code(s): Z78.9 - OTHER SPECIFIED HEALTH STATUS SNOMED Code(s): 890947379 Status and Disposition: inpatient - will most likely need IV antibiotic at discharge
[2018-08-12] MEDS: Heparin VIAL(*) 5000 UNITS/ML VIAL (FIVE THOUSAND) SUBCUT SCH ×4 (00:02→23:27)
[2018-08-12] MEDS: Vancomycin(*) 1,000 MG in NS 0.9% 250 ML* 250 ML IVPB SCH ×3 (01:02→17:55)
[2018-08-12] MEDS: metroNIDAZOLE IV 500 MG/100ML* 500 MG/100 ML BAG IVPB SCH ×2 (03:58→16:42)
[2018-08-12] MEDS: oxyCODONE/Acetamin 5/325 MG* TAB PO PRN ×3 (04:00→23:27)
[2018-08-12 05:56] LABS: EGFR Non-African American 148.8 (>60)
[2018-08-12] MEDS: NS 0.9% 1000 ML* 1,000 ML IV SCH (06:26)
[2018-08-12] MEDS: Insulin LISPRO* 1 UNITS UNIT SUBCUT SCH ×3 (07:57→17:55)
[2018-08-12] MEDS: Losartan TAB* 25 MG PO SCH (07:57)
--- NOTE | 2018-08-12 09:31 | PN ---
Progress Note - Progress Note Date of Service: 08/12/18 SOAP: Subjective: No complaints. Objective: LLE: - incision intact. no drainage. some spotting on the dressing Microbiology 08/11/18 20:22 Wound Gram Stain - Final Mrsa Positive S.aureus Positive Selected Entries 08/12/18 04:12 Temperature 98.0 F Pulse Rate 91 Respiratory 18 Rate Blood Pressure 121/78 (mmHg) Laboratory Tests 08/11/18 08/11/18 08/12/18 16:37 17:01 07:43 WBC 4.3 Neut % (Auto) 77.4 POC Glucose (mg/dL) 317 H 232 H Assessment: POD 2 amputation left 3rd toe Plan: - Continue antibiotics, Ceftriaxone/Flagyl/Vanco, or change per ID - Heel weight bearing as tolerated - DSD daily - Please provide patient with a hard-soled postop shoe - Follow up with me 7-10 days postop in clinic - Follow cxs. Gram stain showed mixed allison. - Dispo planning - Recommend Hospitalist tighten blood glucose management
--- NOTE | 2018-08-12 11:53 | PN ---
Subjective Date of Service: 08/12/18 Interval History: Patient was seen and examined earlier today. Reports feeling very well, L foot pain is well controlled, denies fever or chills. L foot dressing changed earlier today by Dr. Sanders, no surgical issues, wound healing without problems. Surgical shoe was ordered, patient may bear weight on left heel as tolerated. He has no complaints today. Family History: Unchanged from Admission Social History: Unchanged from Admission Past Medical History: Unchanged from Admission Objective Active Medications: Acetaminophen (Tylenol Tab*) 650 mg PO Q4H PRN PRN Reason: FEVER/PAIN Al Hydrox/Mg Hydrox/Simethicone (Maalox Plus*) 30 ml PO Q6H PRN PRN Reason: INDIGESTION Dextrose (D50w Syringe 50 Ml*) 12.5 gm IV PUSH .FOR FS < 60 - SS PRN PRN Reason: FS < 60 Heparin Sodium (Porcine) (Heparin Vial(*)) 5,000 units SUBCUT Q8H [facility] Last Admin: 08/12/18 07:57 Dose: 5,000 units Sodium Chloride (Ns 0.9% 1000 Ml*) 1,000 mls @ 100 mls/hr IV PER RATE [facility] Last Admin: 08/12/18 06:26 Dose: 100 mls/hr Metronidazole/Sodium Chloride (Flagyl 500 Mg Ivpb*) 500 mg in 100 mls @ 100 mls /hr IVPB Q12H [facility] Last Admin: 08/12/18 03:58 Dose: 100 mls/hr Ceftriaxone Sodium 1 gm/ (Sodium Chloride) 50 mls @ 200 mls/hr IVPB Q24H [facility] Last Admin: 08/11/18 16:31 Dose: 200 mls/hr Vancomycin HCl 1,000 mg/ (Sodium Chloride) 250 mls @ 166.667 mls/hr IVPB Q8H [facility] Last Admin: 08/12/18 09:28 Dose: 166.667 mls/hr Insulin Human Lispro (Humalog*) 0 units SUBCUT [facility]; Protocol Losartan Potassium (Cozaar Tab*) 50 mg PO DAILY [facility] Last Admin: 08/12/18 07:57 Dose: 50 mg Ondansetron HCl (Zofran Inj*) 4 mg IV Q6H PRN PRN Reason: NAUSEA Oxycodone/Acetaminophen (Percocet 5/325 Tab*) 1 tab PO Q4H PRN PRN Reason: Pain Last Admin: 08/12/18 04:00 Dose: 1 tab Pharmacy Consult (Vancomycin Per Pharmacy*) 1 note FOLLOW UP . PRN PRN Reason: PER PROTOCOL Pharmacy Profile Note (Vancomycin Trough Check) 1 note FOLLOW UP ONCE ONE Stop: 08/12/18 16:31 Vital Signs - 8 hr 08/12/18 08/12/18 08/12/18 04:00 04:12 06:05 Temperature 98.0 F Pulse Rate 91 Respiratory 16 18 16 Rate Blood Pressure 121/78 (mmHg) O2 Sat by Pulse 97 Oximetry 08/12/18 08/12/18 07:52 08:00 Temperature Pulse Rate 86 Respiratory 18 16 Rate Blood Pressure 122/72 (mmHg) O2 Sat by Pulse 98 Oximetry Oxygen Devices in Use Now: None Appearance: Appears comfortable and in NAD. Eyes: No Scleral Icterus, PERRLA Ears/Nose/Mouth/Throat: Clear Oropharnyx, Mucous Membranes Moist Neck: NL Appearance and Movements; NL JVP, Trachea Midline Respiratory: Symmetrical Chest Expansion and Respiratory Effort, Clear to Auscultation Cardiovascular: NL Sounds; No Murmurs; No JVD, RRR Abdominal: NL Sounds; No Tenderness; No Distention Extremities: No Edema, - - Left foot dressing clean and dry. Neurological: Alert and Oriented x 3 Nutrition: Taking PO's Result Diagrams: 08/11/18 16:37 08/12/18 04:51 Additional Lab and Data: . Microbiology and Other Data: Microbiology 08/09/18 20:05 Influenza Types A,B Antigen - Final Nasopharyngeal Specimen received for Influenza A/B Molecular testing Diagnostic Imaging: . EKG Data: . Assess/Plan/Problems-Billing Assessment: Mr. Andrews is a 58 y.o male with a past medical hx of DM and HTN who presented to the ER with nausea, fever left leg redness. Found to have necrotic 3rd toe with left foot and leg cellulitis, who is POD#2 s/p L 3rd toe amputation. - Patient Problems (1) SIRS (systemic inflammatory response syndrome) Current Visit: Yes Status: Acute Comment: - Resolved - Patient intially met SIRS criteria on admission with tachycardia, tachypneia and fever 101.5- afebrile now for past 48 hrs. - Suspect this is related to necrotic left 3rd toe and cellulitis (2) Necrotic toes Current Visit: Yes Status: Acute Comment: - Ortho consulted appreciated - Wound dressing changed today, POD#2 - Wound culture positive for MRSA and MSSA, currently covered with Vanco, Ceftrixone and Flagyl. (3) Cellulitis Current Visit: Yes Status: Acute Comment: - ID consulted - recommendation appriecated, await decision regarding outpatient Abx selection. - Antibiotics changed from zosyn to ceftriaxone, flagyl and vancomycin as per ID recommendations - culture positive for MRSA and MSSA (4) Diabetes Current Visit: Yes Status: Acute Comment: - Finger sticks AC - Lispro sliding scale, moved up to a higher BMI for better coverage - Will continue to acheive better glycemic control. (5) HTN (hypertension) Current Visit: Yes Status: Acute Comment: - stable - continue losartan (6) DVT prophylaxis Current Visit: Yes Status: Acute Comment: - SubQ Heparin (7) Full code status Current Visit: Yes Status: Acute Status and Disposition: inpatient - will most likely need IV antibiotic at discharge
--- NOTE | 2018-08-12 15:20 | PN ---
Progress Note - Progress Note Date of Service: 08/12/18 SOAP: Subjective: CC: foot infection HPI: 58 year old man with sepsis and left 3rd toe gangrene s/p toe amputation. He feels better; no nausea, diarrhea, fever or rash. Swelling in left leg is improving. Objective: Vital Signs Temp 36.7 C 08/12/18 04:12 Pulse 86 08/12/18 07:52 Resp 16 08/12/18 08:00 BP 122/72 08/12/18 07:52 Pulse Ox 98 08/12/18 07:52 Intake & Output 08/11/18 08/12/18 08/12/18 18:59 06:59 18:59 Intake Total 1675 2026 250 Output Total 450 450 900 Balance 1225 1576 -650 Intake: IV Fluids 983 976 ABX - ZOSYN 45 NS (0.9%) 938 976 IVPB 332 600 ABX - FLAGYL 100 ABX - VANCOMYCIN 500 ABX - ZOSYN 332 Oral 360 450 250 Output: Urine 450 450 900 Other: Estimated Void Medium # Bowel Movements 2 Estimated Stool Amount Medium # Voids 1 Gen:awake no distress HEENT: no thrush Heart:RRR no murmur Lungs:CTA BL Abd:+BS NTND soft Skin: No rash MSK: L foot wrapped, toes warm; lower leg mild edema and erythema Laboratory Results - last 24 hr 08/11/18 08/11/18 08/11/18 16:37 16:37 16:37 WBC 4.3 RBC 4.86 Hgb 12.4 L Hct 37 L MCV 76 L MCH 25 L MCHC 33 RDW 15 Plt Count 186 MPV 6.2 L Neut % (Auto) 77.4 Lymph % (Auto) 12.1 L [place] % (Auto) 9.2 H Eos % (Auto) 1.0 Baso % (Auto) 0.3 Absolute Neuts (auto) 3.3 Absolute Lymphs (auto) 0.5 L Absolute Monos (auto) 0.4 Absolute Eos (auto) 0 Absolute Basos (auto) 0 Absolute Nucleated RBC 0 Nucleated RBC % 0.1 INR (Anticoag Therapy) 1.17 H APTT 31.6 BUN 8 Creatinine 0.68 Est GFR ( Amer) 143.9 Est GFR (Non-Af Amer) 118.9 POC Glucose (mg/dL) 10/18/18 10/19/18 10/19/18 17:01 04:51 07:43 WBC RBC Hgb Hct MCV MCH MCHC RDW Plt Count MPV Neut % (Auto) Lymph % (Auto) [place] % (Auto) Eos % (Auto) Baso % (Auto) Absolute Neuts (auto) Absolute Lymphs (auto) Absolute Monos (auto) Absolute Eos (auto) Absolute Basos (auto) Absolute Nucleated RBC Nucleated RBC % INR (Anticoag Therapy) APTT BUN 7 Creatinine 0.56 L Est GFR ( Amer) 180.1 Est GFR (Non-Af Amer) 148.8 POC Glucose (mg/dL) 317 H 232 H 08/12/18 11:44 WBC RBC Hgb Hct MCV MCH MCHC RDW Plt Count MPV Neut % (Auto) Lymph % (Auto) [place] % (Auto) Eos % (Auto) Baso % (Auto) Absolute Neuts (auto) Absolute Lymphs (auto) Absolute Monos (auto) Absolute Eos (auto) Absolute Basos (auto) Absolute Nucleated RBC Nucleated RBC % INR (Anticoag Therapy) APTT BUN Creatinine Est GFR ( Amer) Est GFR (Non-Af Amer) POC Glucose (mg/dL) 274 H Assessment: 1. Polymicrobial gangrene, acute osteomyelitis left 3rd toe, cellulitis left foot 2. diabetes with hyperglycemia 3. peripheral neuropathy Plan: 1. vancomycin goal tr 10-15, flagyl; DC ceftriaxone. Day 12/22 of iv antibiotics , ok for picc. 35 minutes floor time >50% face to face discussing antibiotic and rehab plans
[2018-08-12] MEDS: cefTRIAXone(*) 1 GM in NS 0.9% 50 ML* 50 ML IVPB SCH (15:43)
[2018-08-12] MEDS ORDERED: Vancomycin Trough Check NOTE FOLLOW UP ONE (16:30)
[2018-08-12] MEDS ORDERED: Vancomycin(*) 1,250 MG in NS 0.9% 250 ML* 250 ML IVPB SCH (21:47)
[2018-08-13] MEDS: Vancomycin(*) 1,250 MG in NS 0.9% 250 ML* 250 ML IVPB SCH ×3 (01:16→17:32)
[2018-08-13] MEDS: metroNIDAZOLE IV 500 MG/100ML* 500 MG/100 ML BAG IVPB SCH ×2 (03:39→16:11)
--- NOTE | 2018-08-13 08:02 | PN ---
Progress Note - Progress Note Date of Service: 08/13/18 SOAP: Subjective: resting comfortably with no complaints. pain well controlled Objective: Vital Signs Temp Pulse Resp BP Pulse Ox 97.6 F 81 18 117/69 95 08/13/18 03:24 08/13/18 03:24 08/13/18 03:24 08/13/18 03:24 08/13/18 03:24 Laboratory Last Values WBC 4.3 10^3/ul (3.5-10.8) 08/11/18 16:37 RBC 4.86 10^6/ul (4.00-5.40) 08/11/18 16:37 Hgb 12.4 g/dl (14.0-18.0) L 08/11/18 16:37 Hct 37 % (42-52) L 08/11/18 16:37 MCV 76 fL (80-94) L 08/11/18 16:37 MCH 25 pg (27-31) L 08/11/18 16:37 MCHC 33 g/dl (31-36) 08/11/18 16:37 RDW 15 % (10.5-15) 08/11/18 16:37 Plt Count 186 10^3/ul (150-450) 08/11/18 16:37 MPV 6.2 um3 (7.4-10.4) L 08/11/18 16:37 Neut % (Auto) 77.4 % (38-83) 08/11/18 16:37 Lymph % (Auto) 12.1 % (25-47) L 08/11/18 16:37 [place] % (Auto) 9.2 % (0-7) H 08/11/18 16:37 Eos % (Auto) 1.0 % (0-6) 08/11/18 16:37 Baso % (Auto) 0.3 % (0-2) 08/11/18 16:37 Absolute Neuts (auto) 3.3 10^3/ul (1.5-7.7) 08/11/18 16:37 Absolute Lymphs (auto) 0.5 10^3/ul (1.0-4.8) L 08/11/18 16:37 Absolute Monos (auto) 0.4 10^3/ul (0-0.8) 08/11/18 16:37 Absolute Eos (auto) 0 10^3/ul (0-0.6) 08/11/18 16:37 Absolute Basos (auto) 0 10^3/ul (0-0.2) 08/11/18 16:37 Absolute Nucleated RBC 0 10^3/ul 08/11/18 16:37 Nucleated RBC % 0.1 08/11/18 16:37 ESR 43 mm/Hr (0-20) H 08/09/18 20:17 INR (Anticoag Therapy) 1.17 (0.77-1.02) H 08/11/18 16:37 APTT 31.6 seconds (26.0-36.3) 08/11/18 16:37 Sodium 138 mmol/L (135-145) 08/10/18 04:42 Potassium 4.0 mmol/L (3.5-5.0) 08/10/18 04:42 Chloride 107 mmol/L (101-111) 08/10/18 04:42 Carbon Dioxide 24 mmol/L (22-32) 08/10/18 04:42 Anion Gap 7 mmol/L (2-11) 08/10/18 04:42 BUN 7 mg/dL (6-24) 08/12/18 04:51 Creatinine 0.56 mg/dL (0.67-1.17) L 08/12/18 04:51 Est GFR ( Amer) 180.1 (>60) 08/12/18 04:51 Est GFR (Non-Af Amer) 148.8 (>60) 08/12/18 04:51 BUN/Creatinine Ratio 13.8 (8-20) 08/10/18 04:42 Glucose 87 mg/dL (70-100) 08/10/18 04:42 POC Glucose (mg/dL) 333 mg/dL (70-100) H 08/12/18 16:46 Hemoglobin A1c 10.0 % (4.0-5.6) H 08/10/18 04:42 Lactic Acid 0.6 mmol/L (0.5-2.0) 08/09/18 20:17 Calcium 7.7 mg/dL (8.6-10.3) L 08/10/18 04:42 Total Bilirubin 0.80 mg/dL (0.2-1.0) 08/09/18 16:33 AST 13 U/L (13-39) 08/09/18 16:33 ALT 14 U/L (7-52) 08/09/18 16:33 Alkaline Phosphatase 75 U/L (34-104) 08/09/18 16:33 Troponin I 0.01 ng/mL (<0.04) 08/09/18 16:33 C-Reactive Protein 116.19 mg/L (<8.01) H 08/09/18 20:17 Total Protein 6.6 g/dL (6.4-8.9) 08/09/18 16:33 Albumin 3.8 g/dL (3.2-5.2) 08/09/18 16:33 Globulin 2.8 g/dL (2-4) 08/09/18 16:33 Albumin/Globulin Ratio 1.4 (1-3) 08/09/18 16:33 Urine Color Yellow 08/09/18 20:05 Urine Appearance Clear 08/09/18 20:05 Urine pH 5.0 (5-9) 08/09/18 20:05 Ur Specific [place] 1.025 (1.010-1.030) 08/09/18 20:05 Urine Protein Negative (Negative) 08/09/18 20:05 Urine Ketones 1+ (Negative) A 08/09/18 20:05 Urine Blood Negative (Negative) 08/09/18 20:05 Urine Nitrate Negative (Negative) 08/09/18 20:05 Urine Bilirubin Negative (Negative) 08/09/18 20:05 Urine Urobilinogen Negative (Negative) 08/09/18 20:05 Ur Leukocyte Esterase Negative (Negative) 08/09/18 20:05 Urine Glucose 3+(>=500 mg/dl) (Negative) A 08/09/18 20:05 Vancomycin Trough 11.1 mcg/mL 08/12/18 16:00 Influenza A (Rapid) Negative (Negative) 08/09/18 21:18 Influenza B (Rapid) Negative (Negative) 08/09/18 21:18 incision: c/d/i PE: NVI Assessment: s/p left 3rd toe amp Plan: 1) heel WB LLE 2) Abx per ID 3) Heparin for DVT prophyalxis 4) hospitalist co-managing
[2018-08-13] MEDS: Insulin LISPRO* 1 UNITS UNIT SUBCUT SCH ×3 (08:23→17:32)
[2018-08-13] MEDS: Losartan TAB* 25 MG PO SCH (08:23)
[2018-08-13] MEDS: oxyCODONE/Acetamin 5/325 MG* TAB PO PRN ×2 (08:23→20:16)
[2018-08-13] MEDS: Heparin VIAL(*) 5000 UNITS/ML VIAL (FIVE THOUSAND) SUBCUT SCH ×3 (08:24→23:51)
--- NOTE | 2018-08-13 15:12 | PN ---
Subjective Date of Service: 08/13/18 Interval History: Mr. Andrews was seen at bedside earlier today. Reports doing about the same, has no complaints today. Awaiting PICC line placement in anticipation for IV antibiotics therapy upon discharge. Denies fever or chills. Family History: Unchanged from Admission Social History: Unchanged from Admission Past Medical History: Unchanged from Admission Objective Active Medications: Acetaminophen (Tylenol Tab*) 650 mg PO Q4H PRN PRN Reason: FEVER/PAIN Al Hydrox/Mg Hydrox/Simethicone (Maalox Plus*) 30 ml PO Q6H PRN PRN Reason: INDIGESTION Dextrose (D50w Syringe 50 Ml*) 12.5 gm IV PUSH .FOR FS < 60 - SS PRN PRN Reason: FS < 60 Heparin Sodium (Porcine) (Heparin Vial(*)) 5,000 units SUBCUT Q8H [facility] Last Admin: 08/13/18 08:24 Dose: 5,000 units Sodium Chloride (Ns 0.9% 1000 Ml*) 1,000 mls @ 100 mls/hr IV PER RATE [facility] Last Admin: 08/12/18 06:26 Dose: 100 mls/hr Metronidazole/Sodium Chloride (Flagyl 500 Mg Ivpb*) 500 mg in 100 mls @ 100 mls /hr IVPB Q12H [facility] Last Admin: 08/13/18 03:39 Dose: 100 mls/hr Vancomycin HCl 1,250 mg/ (Sodium Chloride) 250 mls @ 166.667 mls/hr IVPB 0100, 0900,1700 [facility] Last Admin: 08/13/18 09:27 Dose: 166.667 mls/hr Insulin Human Lispro (Humalog*) 0 units SUBCUT AC [facility]; Protocol Last Admin: 08/13/18 12:47 Dose: 9 units Losartan Potassium (Cozaar Tab*) 50 mg PO DAILY [facility] Last Admin: 08/13/18 08:23 Dose: 50 mg Ondansetron HCl (Zofran Inj*) 4 mg IV Q6H PRN PRN Reason: NAUSEA Oxycodone/Acetaminophen (Percocet 5/325 Tab*) 1 tab PO Q4H PRN PRN Reason: Pain Last Admin: 08/13/18 08:23 Dose: 1 tab Pharmacy Consult (Vancomycin Per Pharmacy*) 1 note FOLLOW UP . PRN PRN Reason: PER PROTOCOL Pharmacy Profile Note (Vancomycin Trough Check) 1 note FOLLOW UP 0900 ONE Stop: 08/14/18 09:01 Vital Signs - 8 hr 08/13/18 08/13/18 08/13/18 08:00 08:23 11:58 Temperature 97.8 F 97.9 F Pulse Rate 83 86 Respiratory 18 16 16 Rate Blood Pressure 133/83 128/77 (mmHg) O2 Sat by Pulse 96 99 Oximetry 08/13/18 12:48 Temperature Pulse Rate Respiratory 18 Rate Blood Pressure (mmHg) O2 Sat by Pulse Oximetry Oxygen Devices in Use Now: None Appearance: Appears comfortable and in NAD Eyes: No Scleral Icterus, PERRLA Ears/Nose/Mouth/Throat: Clear Oropharnyx, Mucous Membranes Moist Neck: NL Appearance and Movements; NL JVP, Trachea Midline Respiratory: Symmetrical Chest Expansion and Respiratory Effort, Clear to Auscultation Cardiovascular: NL Sounds; No Murmurs; No JVD, RRR Abdominal: NL Sounds; No Tenderness; No Distention Extremities: No Edema, - - Left foot dressing clean and dry. Neurological: Alert and Oriented x 3 Nutrition: Taking PO's Result Diagrams: 08/11/18 16:37 08/12/18 04:51 Additional Lab and Data: . Microbiology and Other Data: Microbiology 08/09/18 20:05 Influenza Types A,B Antigen - Final Nasopharyngeal Specimen received for Influenza A/B Molecular testing Diagnostic Imaging: . EKG Data: . Assess/Plan/Problems-Billing Assessment: Mr. Andrews is a 58 y.o male with a past medical hx of DM and HTN who presented to the ER with nausea, fever left leg redness. Found to have necrotic 3rd toe with left foot and leg cellulitis, who is POD#3 s/p L 3rd toe amputation. - Patient Problems (1) SIRS (systemic inflammatory response syndrome) Current Visit: Yes Status: Acute Comment: - Resolved - Patient intially met SIRS criteria on admission with tachycardia, tachypneia and fever 101.5- afebrile now for past 48 hrs. - Suspect this is related to necrotic left 3rd toe and cellulitis (2) Necrotic toes Current Visit: Yes Status: Acute Comment: - Ortho consulted appreciated - Wound culture positive for MRSA and MSSA, currently covered with Vanco, Ceftrixone and Flagyl. (3) Cellulitis Current Visit: Yes Status: Acute Comment: - ID consulted - recommendation appriecated, await decision regarding outpatient Abx selection. - Antibiotics changed from zosyn to ceftriaxone, flagyl and vancomycin as per ID recommendations, day 01/19 - culture positive for MRSA and MSSA - Awaiting PICC line placement for IV Abx as outpatient (4) Diabetes Current Visit: Yes Status: Acute Comment: - Finger sticks AC - Lispro sliding scale, moved up to a higher BMI for better coverage - Will continue to acheive better glycemic control. (5) HTN (hypertension) Current Visit: Yes Status: Acute Comment: - stable - continue losartan (6) DVT prophylaxis Current Visit: Yes Status: Acute Comment: - SubQ Heparin (7) Full code status Current Visit: Yes Status: Acute Status and Disposition: inpatient - will most likely need IV antibiotic at discharge
[2018-08-14] MEDS: Vancomycin(*) 1,250 MG in NS 0.9% 250 ML* 250 ML IVPB SCH ×3 (01:24→18:10)
[2018-08-14] MEDS: metroNIDAZOLE IV 500 MG/100ML* 500 MG/100 ML BAG IVPB SCH ×2 (04:14→16:03)
[2018-08-14 06:19] LABS: ABS Basophils 0 10^3/ul (0-0.2); ABS Eosinophils 0.1 10^3/ul (0-0.6); ABS Lymphocytes 0.7 10^3/ul (1.0-4.8); ABS Monocytes 0.4 10^3/ul (0-0.8); ABS Neutrophils 2.3 10^3/ul (1.5-7.7); ABS Nucleated RBC 0 10^3/ul; Eosinophil % 2.1 % (0-6); Hematocrit 35 % (42-52); Hemoglobin 11.2 g/dl (14.0-18.0); Lymphocyte % 19.5 % (25-47); Mean Corpuscular HGB Conc 33 g/dl (31-36); Mean Corpuscular Hemoglobin 25 pg (27-31); Mean Corpuscular Volume 77 fL (80-94); Nucleated Red Blood Cells % 0.1; Platelet Count 213 10^3/ul (150-450); Red Blood Count 4.49 10^6/ul (4.00-5.40); Red Cell Distribution Width 15 % (10.5-15); White Blood Count 3.6 10^3/ul (3.5-10.8)
[2018-08-14] MEDS: Heparin VIAL(*) 5000 UNITS/ML VIAL (FIVE THOUSAND) SUBCUT SCH ×2 (07:30→16:03)
[2018-08-14] MEDS ORDERED: Vancomycin Trough Check NOTE FOLLOW UP ONE (09:00)
[2018-08-14] MEDS: Losartan TAB* 25 MG PO SCH (09:43)
[2018-08-14] MEDS: oxyCODONE/Acetamin 5/325 MG* TAB PO PRN ×2 (09:44→18:39)
[2018-08-14] MEDS: Insulin LISPRO* 1 UNITS UNIT SUBCUT SCH ×3 (09:45→17:53)
--- NOTE | 2018-08-14 13:35 | PN ---
Subjective Date of Service: 08/14/18 Interval History: pt reports he feels better everyday and hopes he can go home soon. He denies fever/chills. No nausea/vomiting/diarrhea Family History: Unchanged from Admission Social History: Unchanged from Admission Past Medical History: Unchanged from Admission Objective Active Medications: Acetaminophen (Tylenol Tab*) 650 mg PO Q4H PRN PRN Reason: FEVER/PAIN Al Hydrox/Mg Hydrox/Simethicone (Maalox Plus*) 30 ml PO Q6H PRN PRN Reason: INDIGESTION Dextrose (D50w Syringe 50 Ml*) 12.5 gm IV PUSH .FOR FS < 60 - SS PRN PRN Reason: FS < 60 Heparin Sodium (Porcine) (Heparin Vial(*)) 5,000 units SUBCUT Q8H [facility] Last Admin: 08/14/18 07:30 Dose: 5,000 units Sodium Chloride (Ns 0.9% 1000 Ml*) 1,000 mls @ 100 mls/hr IV PER RATE [facility] Last Admin: 08/12/18 06:26 Dose: 100 mls/hr Metronidazole/Sodium Chloride (Flagyl 500 Mg Ivpb*) 500 mg in 100 mls @ 100 mls /hr IVPB Q12H [facility] Last Admin: 08/14/18 04:14 Dose: 100 mls/hr Vancomycin HCl 1,250 mg/ (Sodium Chloride) 250 mls @ 166.667 mls/hr IVPB 0100, 0900,1700 [facility] Last Admin: 08/14/18 11:14 Dose: 166.667 mls/hr Insulin Human Lispro (Humalog*) 0 units SUBCUT AC [facility]; Protocol Last Admin: 08/14/18 09:45 Dose: 6 units Losartan Potassium (Cozaar Tab*) 50 mg PO DAILY [facility] Last Admin: 08/14/18 09:43 Dose: 50 mg Ondansetron HCl (Zofran Inj*) 4 mg IV Q6H PRN PRN Reason: NAUSEA Oxycodone/Acetaminophen (Percocet 5/325 Tab*) 1 tab PO Q4H PRN PRN Reason: Pain Last Admin: 08/14/18 09:44 Dose: 1 tab Pharmacy Consult (Vancomycin Per Pharmacy*) 1 note FOLLOW UP . PRN PRN Reason: PER PROTOCOL Pharmacy Profile Note (Vancomycin Trough Check) 1 note FOLLOW UP ONCE ONE Stop: 08/16/18 08:31 Vital Signs - 8 hr 08/14/18 08/14/18 08/14/18 07:32 08:00 09:44 Temperature 97.7 F Pulse Rate 81 Respiratory 17 18 18 Rate Blood Pressure 133/74 (mmHg) O2 Sat by Pulse 97 Oximetry 08/14/18 11:32 Temperature 98.0 F Pulse Rate 82 Respiratory 18 Rate Blood Pressure 141/81 (mmHg) O2 Sat by Pulse 97 Oximetry Oxygen Devices in Use Now: None Appearance: 58 yo male laying in bed watching tv in NAD. A+O x3 Eyes: No Scleral Icterus, PERRLA Ears/Nose/Mouth/Throat: NL Teeth, Lips, Gums, Mucous Membranes Moist Neck: NL Appearance and Movements; NL JVP Respiratory: Symmetrical Chest Expansion and Respiratory Effort, Clear to Auscultation Cardiovascular: NL Sounds; No Murmurs; No JVD, RRR, No Edema Abdominal: NL Sounds; No Tenderness; No Distention Extremities: No Edema, - - 3rd left toe wrapped with CD+I dressing - no drainage. Foot is warm and well perfused. Neurological: Alert and Oriented x 3 Result Diagrams: 08/14/18 05:48 08/12/18 04:51 Additional Lab and Data: . Microbiology and Other Data: Microbiology 08/09/18 20:05 Influenza Types A,B Antigen - Final Nasopharyngeal Specimen received for Influenza A/B Molecular testing Diagnostic Imaging: . EKG Data: . Assess/Plan/Problems-Billing Assessment: Mr. Andrews is a 58 y.o male with a past medical hx of DM and HTN who presented to the ER with nausea, fever left leg redness. Found to have necrotic 3rd toe with left foot and leg cellulitis, who is POD#3 s/p L 3rd toe amputation. - Patient Problems (1) SIRS (systemic inflammatory response syndrome) Comment: - Resolved - Patient intially met SIRS criteria on admission with tachycardia, tachypnea and fever 101.5- afebrile now for past 72 hrs. - Suspect this is related to necrotic left 3rd toe and cellulitis (2) Necrotic toes Comment: - Ortho & ID consulted appreciated - Wound culture positive for MRSA and MSSA, currently covered with Vanco and Flagyl. (3) Cellulitis Comment: - ID consulted - - Antibiotics changed from zosyn to ceftriaxone, flagyl and vancomycin as per ID recommendations, day 02/19 - culture positive for MRSA and MSSA - Awaiting PICC line placement for IV Abx as outpatient (4) Diabetes Comment: - Finger sticks AC - Lispro sliding scale, moved up to a higher BMI for better coverage - Will continue to acheive better glycemic control. (5) HTN (hypertension) Comment: - stable - continue losartan (6) DVT prophylaxis Comment: - SubQ Heparin (7) Full code status Status and Disposition: inpatient - will most likely need IV antibiotic at discharge
--- NOTE | 2018-08-14 22:47 | OP ---
OPERATIVE REPORT: DATE OF OPERATION: 08/10/18 DATE OF : 56 SURGEON: Abdulaziz Peters M.D. SPORTS PHYSICAL THERAPIST: SOPHIE Walker. A physician assistant to the dean was required for the length of the procedure for help with positioning, retraction, and closure. ANESTHESIOLOGIST: Dr. Lorenza Smith. ANESTHESIA: Local anesthesia with 30 mL of 0.25% Marcaine without epinephrine, general sedation. PRE-OP DIAGNOSIS: Left third toe necrosis, osteomyelitis. POST-OP DIAGNOSIS: Left third toe necrosis, osteomyelitis. OPERATIVE PROCEDURE: Amputation, left third toe at the metatarsophalangeal joint level. ANTIBIOTICS: Ancef 2 g IV provided after pathology was obtained and cultures were obtained. IV FLUIDS: See anesthesia note. TOURNIQUET TIME: 14 minutes at 250 mmHg at the level of the lower leg, left. [id number] TIME: Approximately 25 minutes. SPECIMENS: Left third toe in multiple parts, sent to pathology. Cultures swabs , aerobic and anaerobic obtained. ESTIMATED BLOOD LOSS: Minimal. IMPLANTS: None. COMPLICATIONS: None. INDICATIONS FOR PROCEDURE: The patient is a 58-year-old man, with diabetes mellitus, with a history of bilateral great toe osteomyelitis and ulcers, treated previously by Dr. Carmen and Dr. Romero, who presented to [facility] [place] on 08/09, with nausea and vomiting and fever as well as a black left third toe. The patient had to cable puller his car to vomit that day and thought that the trip to the emergency room was therefore appropriate. He had noted some skin coloration changes for only 3 days in his left third toe. However, he acknowledges that he does not inspect his toes closely and they may have done longer that it had been discolored. The patient had been seen by hospitalist, noted to have a black necrotic left third toe and an orthopedic surgery consult was obtained. Reviewing the patient's prior notes from [facility] and [facility], I saw that the patient had been seen by Dr. Romero in the past several years for contralateral right great toe ulceration and osteomyelitis. He has also been seen by Dr. Carmen including in the recent past for ipsilateral left great toe ulcer and osteomyelitis. The ulceration had fully healed and the patient was receiving no additional antibiotics for that ipsilateral left great toe. On exam, the patient had in the left third toe, it was blackened to the base of the toe. There were skin defects. A ta, strong pungent smell of infection above that toe. The patient had no tenderness to palpation about the left great toe nor any skin changes there. The 4 toes other than the third toe did not appear to have any blackening of the skin color or any ulceration. The patient had cap refill less than 2 seconds, but the dorsalis pedis and posterior tibialis were not easily palpable. The patient had a white blood cell count of 5.8, but neutrophil percentage of 75.7%. The patient was seen by Dr. Carmen, who described wet gangrene with cellulitis. He changed the patient from cefepime to Zosyn to add anaerobic coverage, and recommended diabetes mellitus consult for management. The patient had had ABIs obtained in the previous year, on 05/18/18, it showed on the left, the ASIYA for the posterior tibial artery to be 0.92 and the dorsalis pedis to be 0.89, both above 0.45. I recommended amputation of the toe at or about the metatarsophalangeal joint, left third toe. Infectious Disease, Dr. Carmen was in agreement. I discussed risks and potential complications of surgery with the patient including bleeding, nerve or blood vessel injury, phantom pain, most principally poor healing of wound, and requirement of future additional amputations. DESCRIPTION OF PROCEDURE: The patient signed a written consent preoperatively. Operative extremity was marked in preoperative holding in the operative toe, third toe was marked in preoperative holding. The patient was taken back to the operating room, placed supine on operating room table, some light sedation was applied. Prior to prep and drape, I performed a mini time-out procedure. I next performed an ankle block, regional anesthetic block with 0.25% Marcaine without epinephrine. I anesthetized the 5 peripheral nerves at the level of the ankle, just proximal to the ankle. I also performed a digital nerve block on the medial and lateral side of the distal third metatarsal, left. This included 30 mL of fluid. We next prepped the patient with Betadine and draped his leg after having applied a tourniquet to the mid lower leg. Surgical time-out performed. Tourniquet was elevated at 250 mmHg after an Esmarch was applied. I marked my skin incision with a pen just proximal to the proximal end of the necrotic tissue. I used a knife to cut the skin circumferentially about the toe at that level of the proximal most extent of the black tissue. I then grasped the toe with a sharp clamp and pulled some traction. I released the collateral ligaments at the MTP joints followed by extensor and flexor tendons at that level and joint capsule. The 3 phalanges and the rest of the toe were removed. This came out in several pieces. There was small amount of poor quality skin tissues and I then debrided. Likewise, I debrided some subcutaneous tissue with mini rongeur. Irrigated well with bulb-tip syringe. The tourniquet was dropped. There was very minimal bleeding. The skin more easily closed from dorsal or plantar then from medial to lateral. I closed the incision with multiple stitches, both simple, [id number], and horizontal mattress, using nylon 4-0 suture. The wound was able to close nicely with a minimum of tension. It should be noted that when the toe was removed, just prior to that, I used culture swabs to obtain aerobic and anaerobic culture swabs. After the skin was closed, we applied the dressing, dry sterile dressing including 4x4s and Kerlix followed by an ZEKE bandage. DISPOSITION: The patient was readmitted to the hospitalist service postoperatively. He was to be heel weightbearing in a postoperative hard-sole shoe. He can be seen by physical therapy to help with his mobility. His blood glucose would be controlled by the hospitalist service. We will follow up on pathology and cultures to determine optimal IV antibiotics postoperatively. The patient will follow up with in approximately 7 to 10 days postoperatively for a wound check. I anticipated these stitches to be left in for 3 weeks postoperatively. [id number]/[facility] #: [id number] GIOVANNI
--- NOTE | 2018-08-14 23:20 | OP ---
OPERATIVE REPORT: DATE OF OPERATION: 08/10/18. DATE OF : 56 ADDENDUM: OPERATIVE PROCEDURE: 1. Amputation left third toe at the metatarsophalangeal joint level. 2. Peripheral nerve block, left ankle nerve block as well as left third toe digital nerve block. [id number]/[facility] #: [id number] MTDD
[2018-08-15] MEDS: oxyCODONE/Acetamin 5/325 MG* TAB PO PRN
[2018-08-15] MEDS: Vancomycin(*) 1,250 MG in NS 0.9% 250 ML* 250 ML IVPB SCH ×2 (00:01→09:16)
[2018-08-15] MEDS: metroNIDAZOLE IV 500 MG/100ML* 500 MG/100 ML BAG IVPB SCH ×2 (04:04→16:47)
[2018-08-15 06:52] LABS: ABS Basophils 0 10^3/ul (0-0.2); ABS Eosinophils 0.1 10^3/ul (0-0.6); ABS Lymphocytes 0.6 10^3/ul (1.0-4.8); ABS Monocytes 0.4 10^3/ul (0-0.8); ABS Neutrophils 2.3 10^3/ul (1.5-7.7); ABS Nucleated RBC 0 10^3/ul; Eosinophil % 1.8 % (0-6); Hematocrit 35 % (42-52); Hemoglobin 11.6 g/dl (14.0-18.0); Lymphocyte % 18.2 % (25-47); Mean Corpuscular HGB Conc 33 g/dl (31-36); Mean Corpuscular Hemoglobin 25 pg (27-31); Mean Corpuscular Volume 76 fL (80-94); Mean Platelet Volume 5.9 um3 (7.4-10.4); Nucleated Red Blood Cells % 0.2; Platelet Count 223 10^3/ul (150-450); Red Blood Count 4.56 10^6/ul (4.00-5.40); Red Cell Distribution Width 15 % (10.5-15); White Blood Count 3.4 10^3/ul (3.5-10.8)
[2018-08-15 07:11] LABS: EGFR Non-African American 151.9 (>60)
[2018-08-15] MEDS: Heparin VIAL(*) 5000 UNITS/ML VIAL (FIVE THOUSAND) SUBCUT SCH ×3 (07:28→16:49)
[2018-08-15] MEDS: Losartan TAB* 25 MG PO SCH (09:18)
[2018-08-15] MEDS: Insulin LISPRO* 1 UNITS UNIT SUBCUT SCH ×3 (09:21→18:37)
--- NOTE | 2018-08-15 09:56 | PN ---
Progress Note - Progress Note Date of Service: 08/15/18 SOAP: Subjective: CC: foot infection HPI: 58 year old man with sepsis and left 3rd toe gangrene s/p toe amputation. Has been up and around, steady on his feet. No fever, rash, or diarrhea. Objective: Vital Signs Temp 36.2 C 08/15/18 07:46 Pulse 74 08/15/18 07:46 Resp 14 08/15/18 07:46 BP 133/77 08/15/18 07:46 Pulse Ox 97 08/15/18 07:46 Intake & Output 08/14/18 08/15/18 08/15/18 18:59 06:59 18:59 Intake Total 753 1179 Output Total 1250 775 Balance -497 404 Intake: IV Fluids 133 22 ABX - FLAGYL 98 NS (0.9%) 35 22 IVPB 407 ABX - FLAGYL 112 ABX - VANCOMYCIN 295 Oral 620 750 Output: Urine 1250 775 Other: Date of Last Bowel 08/14/18 Movement Gen:awake no distress HEENT: no thrush Heart:RRR no murmur Lungs:CTA BL Abd:+BS NTND soft Skin: No rash MSK: L foot wrapped, toes warm; lower leg mild edema and erythema Assessment: 1. Polymicrobial gangrene, acute osteomyelitis left 3rd toe, cellulitis left foot 2. diabetes with hyperglycemia 3. peripheral neuropathy Plan: 1. For discharge: daptomycin 500 mg iv daily with flagyl 500 mg po tid for 14 more days; weekly cbc, cmp, crp, ck
[2018-08-15 15:39] VITALS: BP 152/79
--- NOTE | 2018-08-16 05:15 | DS ---
CC: Dr. Perez * DISCHARGE SUMMARY: DATE OF ADMISSION: 08/09/18 DATE OF DISCHARGE: 08/15/18 PRIMARY CARE PROVIDER: Dr. Perez. ATTENDING PHYSICIAN: Dr. Sams (dictated by Eva Gunderson NP) PRIMARY DIAGNOSES: 1. Left foot cellulitis with necrotic third toe, status post left third toe amputation. 2. Hypertension. 3. Diabetes type 2. 4. Osteomyelitis of the left great toe in March of 2018. CONSULTATION WHILE IN THE HOSPITAL: 1. Dr. Baron Carmen. 2. Dr. Peters. PROCEDURES WHILE IN THE HOSPITAL: Amputation, left third toe at the metatarsophalangeal joint level. STUDIES WHILE IN THE HOSPITAL: 1. Chest x-ray: No evidence for acute disease. 2. Lower extremity MRI: New transverse defect through distal neck of the proximal phalanx of the great toe, which may be a pathologic fracture or postsurgical. Abnormal marrow signal involving majority of the proximal phalanx and all of the distal phalanx consistent with osteomyelitis. Surrounding cellulitis, and an 8 mm probable abscess interposed between the proximal and distal phalanx dorsally. Artifacts surrounding the mid and distal phalanx of the third toe suggesting soft tissue gas, less likely surgical or foreign body artifact. Cannot visualize the distal end of the distal phalanx and this may be resected or partially resorbed. Cannot exclude osteomyelitis the phalanx here. Soft tissues: Diffuse subcu edema, most pronounced in the dorsum of the foot, some of this may be passive edema and some may be cellulitis. DISCHARGE MEDICATIONS: New home medications: 1. Daptomycin 500 mg IV daily. The patient will be receiving this in the infusion clinic. 2. Flagyl 500 mg p.o. t.i.d. 14 days. Continued home medications: 1. Farxiga 5 mg p.o. daily. 2. Losartan 50 mg p.o. daily. 3. Metformin 1000 mg p.o. b.i.d. 4. Glipizide 5 mg p.o. b.i.d. 5. Acetaminophen 650 mg p.o. q.4 hours p.r.n. Changed home medications: No home medications were changed. Discontinued home medications: No home medications were discontinued. HISTORY OF PRESENT ILLNESS/HOSPITAL COURSE: Mr. Andrews is a 58-year-old male with a past medical history of hypertension, diabetes type 2, osteomyelitis of left great toe March 2018, who presented to the ED on 08/09/18 with complaint of nausea and vomiting and fevers. He was noted to have redness and swelling to his third left toe and admitted for left lower extremity cellulitis. Please see history and physical by Debbie Green NP, for complete summary of the events leading up to the hospitalization; but in short, after being admitted for left lower extremity cellulitis, he was found to have osteomyelitis which results in amputation of the left third toe at the metatarsophalangeal joint level. During the hospital stay, Ortho was consulted and the patient was brought to the operating room with Dr. Peters for amputation of the left third toe. In the postoperative period, Dr. Carmen was consulted, who managed the patient's antibiotics. He was initially started on vancomycin 1000 mg and then dosing per pharmacy protocol and cefepime 2 g IV q.[address] Carmen's consult, cefepime was changed to Zosyn. Wound cultures positive for MRSA and MSSA, therefore covered with vanco, ceftriaxone, Flagyl. Today in preparation for discharge, vancomycin was discontinued. The patient will be discharged with daptomycin 500 mg IV daily and Flagyl 500 mg t.i.d. for 14 more days. It should also be noted that the patient met SIRS criteria on admission due to tachycardia, tachypnea and fever. The patient was afebrile for the reminder of his stay. The SIRS criteria has resolved. We suspect this is related to the necrotic left toe and cellulitis. Diabetes, during the patient's admission, the glipizide, metformin, and Farxiga were held. He was on lispro sliding scale with fingersticks a.c. It was noted that his hemoglobin A1c was 10%. Therefore, we discussed with the patient the importance of better control with diabetes. He agrees to a consult with Dr. Farnsworth after his discharge. On the day of discharge, the patient is stable. ROS: 14 point ROS system completed and negative. PHYSICAL EXAM: At this time Mr Andrews is a 58 yr old male resting comfortably on the bed in [facility]. He is in no acute distress Vital signs: BP 150/84, O2 99%, RR 16, HR 82, temp 97.8. HEENT: Atraumatic, normocephalic. Eyes: EOMs intact.Oral mucosa appears moist. NECK: Supple LUNGS: Clear to auscultation bilaterally. No rales, rhonchi, or wheezes HEART: S1, S2. Regular rate and rhythm. No murmurs, rubs, or gallops. ABD: Soft, nontender. BS x4. EXTREMITIES: +CMS. Moves all extremities well. Cap refill brisk. No edema. NEUROLOGICAL: Awake, alert, oriented x3. Tongue midline. No focal deficits. Speech clear. SKIN: Warm, dry. Dressing to left lower extremity CDI. Labs as follows: WBC 3.4, RBC 4.56, hemoglobin 11.6, hematocrit 35. Sodium 137 , potassium 4.1, chloride 105, carbon dioxide 27, anion gap 5, BUN 8, creatinine 0.55, GFR 151.9, glucose 236, calcium 8.1, total bilirubin 0.30. AST 19, ALT 18, alk phos 60. At followup, please: 1. Per Dr. Carmen, weekly CBC, BMP, CRP, CK. 2. PICC line to be placed at Infusion Clinic prior to first dose of daptomycin 500 mg IV tomorrow. 3. The patient will follow up with er rn for better diabetes control. 4. Educated the patient on new worsening symptoms that would warrant returning to hospital or seeing PCP. TIME SPENT: Greater than 45 minutes were spent on this discharge, greater than half that time was spent [id number] with the patient. EVA GUNDERSON NP [id number]/[facility] #: [id number] [facility]
[2018-08-16] MEDS ORDERED: Vancomycin Trough Check NOTE FOLLOW UP ONE (08:30)
== END 2018-08-15 19:00 | disposition home or self-care (01) | DRG 710 ==
LOC: ED 15:30 → SSU 18:50
PROVIDERS: ADMIT Pediatrics; ATTEND Student in an Organized Health Care Education/Training Program
PROC: 0Y6U0Z0 Detachment at Left 3rd Toe, Complete, Open Approach (ICD-10-PCS; principal; 2018-08-10 17:45)
DX: A41.9 Sepsis, unspecified organism (principal); E11.52 Type 2 diabetes mellitus with diabetic peripheral angiopathy with gangrene; I96 Gangrene, not elsewhere classified; M60.077 Infective myositis, left toe(s); M86.172 Other acute osteomyelitis, left ankle and foot; M84.478A Pathological fracture, left toe(s), initial encounter for fracture; L02.612 Cutaneous abscess of left foot; L03.032 Cellulitis of left toe; E11.621 Type 2 diabetes mellitus with foot ulcer; E11.42 Type 2 diabetes mellitus with diabetic polyneuropathy; L97.523 Non-pressure chronic ulcer of other part of left foot with necrosis of muscle; E11.65 Type 2 diabetes mellitus with hyperglycemia; B95.2 Enterococcus as the cause of diseases classified elsewhere; B95.4 Other streptococcus as the cause of diseases classified elsewhere; I10 Essential (primary) hypertension; Z79.84 Long term (current) use of oral hypoglycemic drugs; Z79.899 Other long term (current) drug therapy; Z82.49 Family history of ischemic heart disease and other diseases of the circulatory system
CPT/HCPCS: 36415; 71045; 80048; 80053; 80202; 81003; 82565; 83036; 83605; 84484; 84520; 85025; 85610; 85652; 85730; 86140; 87040; 87070; 87073; 87076; 87077; 87186; 87205; 87640; 87641; 88305; 88311; 93005; 99284; A9270-GY; A9579; J0690; J0692; J0696; J1644; J2250; J2543; J2704; J3010; J3370; J3490

== ENCOUNTER 2019-09-27 14:26 | Inpatient (IN) | payer BC, OTHER ==
[2019-09-27] MEDS ORDERED: NS 0.9% 1000 ML** 1,000 ML IV.FLUID IV ONE (15:26)
[2019-09-27] MEDS ORDERED: Clindamycin 600 MG/D5W BAG(*) 600 MG/50 ML BAG IV ONE (15:26)
--- NOTE | 2019-09-27 15:34 | ED ---
Complex/Multi-Sys Presentation - HPI Summary HPI Summary: 59 year old M presenting to [facility] alone complains of foot infection and elevated blood sugar for a couple days and chills which started afternoon of 09/27/19. Pt reports fever and erythema and edema of right foot. Denies cough, vomiting, and abd pain. Hx of diabetes and infection of left foot. No hx of blood clots. The patient rates the pain 0/10 in severity. Symptoms aggravated by nothing. Symptoms alleviated by nothing. - History Of Current Complaint Chief Complaint: EDExtremityLower Time Seen by Provider: 09/27/19 15:21 Hx Obtained From: Patient Onset/Duration: Sudden Onset, Lasting Days, Still Present Timing: Constant, Days Severity Currently: Mild Severity Initially: Mild Aggravating Factor(s): nothing Alleviating Factor(s): nothing Associated Signs And Symptoms: Positive: Edema - right foot, Fever - with chills , Other - erythema of right foot and elevated blood sugar. Negative: Cough, Vomiting, Abdominal Pain - Allergies/Home Medications Allergies/Adverse Reactions: Allergies Allergy/AdvReac Type Severity Reaction Status Date / Time No Known Allergies Allergy Verified 09/27/19 17:45 Home Medications: Home Medications Aspirin 81 mg CHEW TAB* [Aspirin Low Dose TAB*] 81 mg PO DAILY 09/27/19 [ History Confirmed 09/27/19] Dapagliflozin 10 mg Tab (Nf) [Farxiga] 10 mg PO DAILY 09/27/19 [History Confirmed 09/27/19] Pioglitazone TAB* [Actos TAB*] 30 mg PO DAILY 09/27/19 [History Confirmed ] Sildenafil Citrate [Viagra] 50 - 100 mg PO SEE INSTRUCTIONS 09/27/19 [History Confirmed 09/27/19] Sitagliptin Phosphate [Januvia] 100 mg PO DAILY 09/27/19 [History Confirmed 02/10] PMH/Surg Hx/FS Hx/Imm Hx Previously Healthy: Yes Endocrine/Hematology History: Reports: Hx Diabetes Cardiovascular History: Reports: Hx Hypertension Denies: Hx Congestive Heart Failure, Hx Pacemaker/ICD History: Denies: Hx Dialysis, Hx Renal Disease Sensory History: Reports: Hx Contacts or Glasses - Reading glasses Denies: Hx Hearing Aid Opthamlomology History: Reports: Hx Contacts or Glasses - Reading glasses Neurological History: Reports: Other Neuro Impairments/Disorders - Intermittent Neuropathy to feet Psychiatric History: Denies: Hx Panic Disorder - Cancer History Cancer Type, Location and Year: None reported - Surgical History Surgery Procedure, Year, and Place: Age 3- Tonsils. 2006 -Pancreas surgery due to pancreatitis w/ cholecysectomy. 2010- Bowel Obstriction surgery. Hernia/ Blockage repair surgery-[place] Hx Anesthesia Reactions: No Infectious Disease History: No Infectious Disease History: Denies: Traveled Outside the [place] in Last 30 Days - Family History Known Family History: Positive: Cardiac Disease, Hypertension - Social History Alcohol Use: None Hx Substance Use: No Substance Use Type: Reports: None Hx Tobacco Use: Yes Smoking Status (MU): Former Smoker Type: Cigars Have You Smoked in the Last Year: No Review of Systems Positive: Fever, Chills, Other - elevated Negative: Cough Negative: Abdominal Pain, Vomiting Positive: Edema - left foot Positive: Other - Erythema of left foot All Other Systems Reviewed And Are Negative: Yes Physical Exam - Summary Physical Exam Summary: Constitutional: Ill appearing Skin: Flushed, erythema to dorsum of right foot with soft tissue swelling of toes w induration. Draining ulcer to plantar surface R foot near 4/5th MTP HENT: Normocephalic; Atraumatic Eyes: Conjunctiva normal Neck: Musculoskeletal ROM normal neck. (-) JVD, (-) Stridor, (-) Nuchal rigidity Cardio: tachycardic, Rhythm regular, Heart sounds normal; Intact distal pulses; Radial pulses are 2+ and symmetric. (-) Murmur Pulmonary/Chest wall: Effort normal. (-) Respiratory distress, (-) Wheezes, (-) Rales Abd: Soft, (-) tenderness, (-) Distension, (-) Guarding, (-) Rebound Musculoskeletal: +1 edema to RLE up to calf, tenderness of lateral dorsum of foot. Lymph: (-) Cervical adenopathy Neuro: Alert, oriented to person and place not time, follows commands intermittently confused, moves all extremities. Psych: deferred Triage Information Reviewed: Yes Vital Signs On Initial Exam: Initial Vitals Temp Pulse Resp BP Pulse Ox 98.2 F 155 14 120/89 98 09/27/19 14:33 09/27/19 14:33 09/27/19 14:33 09/27/19 14:33 09/27/19 14:33 Vital Signs Reviewed: Yes Procedures - Sedation Patient Received Moderate/Deep Sedation with Procedure: No Diagnostics - Vital Signs Vital Signs Temp Pulse Resp BP Pulse Ox 09/27/19 14:33 98.2 F 155 14 120/89 98 - Laboratory Result Diagrams: 09/28/19 05:22 09/28/19 05:22 Lab Statement: Any lab studies that have been ordered have been reviewed, and results considered in the medical decision making process. - Radiology CXR Radiology Interpretation Completed By: Radiologist Summary of Radiographic Findings: No acute cardiopulmonary process evident. ED physician has reviewed this report. Foot XR Radiology Interpretation Completed By: Radiologist Summary of Radiographic Findings: 1. The radiographic appearance is highly suspicious for acute osteomyelitis involving the third, fourth, and fifth digits with probable associated soft tissue ulcer along the plantar aspect. 2. There is interval sclerotic change at the first distal phalanx suspicious for potential chronic osteomyelitis. The prior exam demonstrated aggressive osteolysis at the first distal phalanx and head of the first proximal phalanx. ED physician has reviewed this report. - EKG 1542 Cardiac Rate: Tachycardia - 149bpm EKG Rhythm: Sinus Tachycardia ST Segment: Normal Ectopy: None Summary of EKG Findings: EKG at 1542 shows sinus tachycardia at 149bpm with nml axis, nml intervals. No STEMI. No acute changes. ED physician has reviewed and interpreted this EKG. Complex Multi-Symp Course/Dx Course Of Treatment: 59 y/o male w hx DM p/w RLE swelling and pain to R foot. - PE w ill appearing male, tachycardic, R foot w draining ulcer to plantar surface, foul smelling. Also w diffuse erythema and induration to dorsum foot. Concern for deeper infection, XR w/o free air but does show osteo. No leukocytosis but CRP elevated. BC and LA obtained, given 30 cc/kg IVF. Covered w clindamycin. CXR and UA also obtained for sepsis workup. Patient is confused, which is likely 2/2 infection in foot. Ad[facility] to [facility] - Diagnoses Provider Diagnoses: AMS (altered mental status), Cellulitis, Sepsis, Osteomyelitis of foot - Physician Notifications Discussed Care Of Patient With: Murphy Ball Time Discussed With Above Provider: 16:32 Instructed by Provider To: Admit As Inpatient Discharge ED - Sign-Out/Discharge Documenting (check all that apply): Patient Departure - Discharge Plan Condition: Stable Disposition: ADMITTED TO [facility] - Billing Disposition and Condition Condition: STABLE Disposition: Admitted to [facility] - Attestation Statements Document Initiated by Scribe: Yes Documenting Scribe: Deanne Kuhn Provider For Whom Gissell is Documenting (Include Credential): Nicola Upton MD. Scribe Attestation: I, Deanne Kuhn, scribed for Nicola Upton MD. on at 1052. Scribe Documentation Reviewed: Yes Provider Attestation: The documentation as recorded by the scribe, Deanne Kuhn accurately reflects the service I personally performed and the decisions made by , Nicola Upton MD. Status of Scribe Document: Viewed
[2019-09-27] MEDS ORDERED: Acetaminophen TAB* 325 MG PO ONE (15:40)
[2019-09-27 16:00] LABS: Hematocrit 40 % (42-52); Hemoglobin 13.3 g/dL (14.0-18.0); Mean Corpuscular HGB Conc 33 g/dL (31-36); Mean Corpuscular Hemoglobin 25 pg (27-31); Mean Corpuscular Volume 74 fL (80-94); Platelet Count 241 10^3/uL (150-450); Red Blood Count 5.41 10^6 /uL (4.18-5.48); Red Cell Distribution Width 15 % (10-15); White Blood Count 7.7 10^3/uL (3.5-10.8)
[2019-09-27 16:36] LABS: Albumin 3.8 g/dL (3.2-5.2); Albumin/Globulin Ratio 1.1 (1-3); BUN/Creatinine Ratio 23.1 (8-20); C Reactive Protein 66.42 mg/L (<8.01); Calcium 9.6 mg/dL (8.6-10.3); EGFR African American 122.4 (>60); EGFR Non-African American 101.2 (>60); Globulin 3.5 g/dL (2-4); Potassium 4.2 mmol/L (3.5-5.0); Total Bilirubin 0.6 mg/dL (0.2-1.0); Total Protein 7.3 g/dL (6.4-8.9)
[2019-09-27 16:44] LABS: ABS Lymphocytes 0.3 10^3/ul (1.0-4.8); ABS Monocytes 0.4 10^3/ul (0-0.8); ABS Neutrophils 6.9 10^3/ul (1.5-7.7); Eosinophil % 0.2 %; Lymphocyte % 3.9 %; Nucleated Red Blood Cells % 0.2
[2019-09-27] MEDS ORDERED: Acetaminophen TAB* 325 MG PO PRN (18:20)
[2019-09-27] MEDS ORDERED: NS 0.9% 1000 ML** 1,000 ML IV SCH (18:30)
[2019-09-27] MEDS ORDERED: Vancomycin per Pharmacy* NOTE FOLLOW UP SCH (19:00)
[2019-09-27 19:06] LABS: Influenza A Molecular NEGATIVE (Negative); Influenza B Molecular NEGATIVE (Negative)
[2019-09-27] MEDS ORDERED: Vancomycin(*) 1,500 MG in NS 0.9% 250 ML* 250 ML IVPB ONE (19:30)
[2019-09-27] MEDS: Enoxaparin(*) 40 MG/0.4 ML SYR SUBCUT SCH (21:09)
[2019-09-27] MEDS: Insulin LISPRO* 1 UNITS UNIT SUBCUT SCH (21:11)
--- NOTE | 2019-09-27 21:25 | HP ---
CC: Dr. Perez; Dr. Carmen.* HISTORY AND PHYSICAL: DATE OF ADMISSION: 09/27/19 PROVIDER: Debbie Green NP. PRIMARY CARE PROVIDER: Dr. Perez. ATTENDING PHYSICIAN WHILE IN THE HOSPITAL: Dr. Samuel Ribeiro * (dictated by Debbie Green NP). CHIEF COMPLAINT: Fever, right foot pain. HISTORY OF PRESENT ILLNESS: Mr. Andrews is a 59-year-old male with a past medical history significant for hypertension, diabetes who presented to the emergency room with complaints of fever and chills. The patient reports that [facility], prior to having the splint applied he developed fever and chills, so he was sent to emergency room for further evaluation. The patient does report that he has had an ulcer on the bottom of his right foot for approximately 2 weeks. He had a wound culture completed on 09/14/19, at that time showed Proteus mirabilis MRSA, Prevotella bivia which was susceptible to vancomycin and cefepime, and the patient reports he was never placed on any antibiotics for treatment of this ulcer. The patient denies any chest pain, edema, cough, hemoptysis or shortness of breath. No nausea, vomiting, diarrhea or abdominal pain. Denies any gross hematuria or dysuria. Denies any focal weakness or sensory loss. Denies any visual complaints, dysphagia, arthralgias, myalgias. He does complain of an ulcer to the plantar aspect of his right foot x2 weeks. He denies any psychosis or anxiety. While in the emergency room, the patient had routine lab work drawn. He was found to be tachycardiac with a fever of 103.2 meeting sepsis criteria. The patient was given clindamycin in the emergency room 600 mg and fluid bolusing of 2590. His lactic acid was within normal limits. Due to the patient meeting sepsis criteria and concern for infected diabetic foot ulcer, Hospital Medicine was asked to see and evaluate the patient for admission. PAST MEDICAL HISTORY: Significant for hypertension, type 2 diabetes, history of osteomyelitis in the left foot, status post 3rd toe amputation. PAST SURGICAL HISTORY: 1. Tonsillectomy. 2. Cholecystectomy. 3. Stomach surgery for blockages. 4. Left 3rd toe amputation. HOME MEDICATIONS: Include: 1. Farxiga 10 mg p.o. daily. 2. Losartan 50 mg p.o. daily. 3. Glipizide 5 mg p.o. daily. 4. Metformin 1000 mg p.o. b.i.d. 5. Januvia 100 mg p.o. daily. 6. Viagra 50 to 100 mg a needed. 7. Actos 30 mg p.o. daily. ALLERGIES: No known drug allergies. FAMILY HISTORY: Hypertension, no reported history of diabetes or cancer within the family. SOCIAL HISTORY: The patient denies smoking. He does report rare alcohol use. Denies any illicit drug use. Surrogate decision maker in the event he is unable to make his own decisions is his daughter, Nieves. Her phone number is [phone] or his brother, Richard Andrews and his phone number is [phone]. He is a full code. REVIEW OF SYSTEMS: A 14-point review of systems was completed. All pertinent positives are mentioned in the HPI, otherwise were negative. PHYSICAL EXAMINATION GENERAL: At this time, Mr. Andrews is a 59-year-old male. His skin is flushed. He is sitting on the stretcher in the emergency room. He is in no acute distress at this time. VITAL SIGNS: Blood pressure 121/74, heart rate is 127, respirations are 25, O2 saturation 96%, temperature 101.1. HEENT: Head is atraumatic, normocephalic. Eyes: EOMs are intact. Sclerae anicteric and not pale. Oral mucosa appears to be moist. NECK: Supple. LUNGS: Clear to auscultation bilaterally. No wheezes, rales or rhonchi. CARDIAC: S1, S2. He is tachycardiac with a regular rate and rhythm. No murmurs, rubs or gallops. ABDOMEN: Soft and nontender. Bowel sounds are present x4. EXTREMITIES: Pedal pulses are +2 bilaterally. He is able to move all 4 extremities. There is no clubbing or cyanosis. NEUROLOGIC: He is awake, alert, and oriented x3. Speech is clear. Thought process is intact. There are no gross focal deficits. SKIN: His right plantar aspect of foot is noted to have an open ulceration, no purulent drainage with surrounding mild erythema noted to the forefoot and toes with moderate amount of swelling noted to the ankle. DIAGNOSTIC STUDIES/LAB DATA: WBCs are 7.7, RBCs 5.41, hemoglobin 13.3, hematocrit 40, platelet count 241. Sodium 138, potassium 4.2, chloride 103, carbon dioxide was 24, anion gap was 11, BUN was 18, creatinine 0.78, glucose was 162, lactic acid 1.8, calcium 9.6. Total bilirubin 0.60, AST 18, ALT 20, alkaline phosphatase 68. C-reactive protein was 66.42. Influenza A and B were negative. He had a foot x-ray. Radiologist impression: Right foot, the radiographic appearance is highly suspicious for acute osteomyelitis involving the third, fourth, and fifth digits and probable associated soft tissue ulcer around the plantar aspect of the foot. There is interval sclerotic change in the first distal phalanx suspicious for potential chronic osteomyelitis. The prior exam demonstrated aggressive osteolysis of the first distal third met head and first proximal phalanx. He had a chest x-ray. Radiologist impression: No active cardiopulmonary disease. He had an electrocardiogram which showed sinus tachycardia at a rate of 149. ASSESSMENT AND PLAN: Mr. Andrews is a 59-year-old male with a past medical history significant for hypertension and type 2 diabetes who presented to the emergency room with complaints of fever and chills, noted to have an ulcer to the plantar aspect of his right foot. He will be admitted inpatient for: 1. Sepsis. The patient is meeting sepsis criteria due to tachycardia, fever, and tachypnea with a suspected source of right foot cellulitis and diabetic foot ulcer. The patient will be started on vancomycin and cefepime as he has previously had a culture of the right foot wound on 09/14/19. At that time, it was positive for Proteus mirabilis, MRSA Prevotella bivia which was susceptible to cefepime and vancomycin. Blood cultures are currently pending. Wound culture is also currently pending. I will consult Infectious Disease and Orthopedics due to the possibility of osteomyelitis in the right foot. 2. Type 2 diabetes. I am going to hold his oral diabetic medications including Januvia, glipizide, Actos, Farxiga. I will place him on fingerstick a.c. and h.s. with lispro sliding scale a.c. and h.s. I will also add on hemoglobin A1. 3. Hypertension. The patient is normotensive at this time. Due to the patient 's underlying sepsis, I am going to hold his losartan at this time. 4. DVT prophylaxis. I will place him on Lovenox subcu. 5. Code status. He is a full code. TIME SPENT: Time spent on this admission was 60 minutes, greater than half that time was spent at the bedside reviewing events leading thus far to his hospitalization, performing physical exam, and reviewing my plan of care. I have discussed this with my attending, Dr. Samuel Ribeiro; he is in agreement with my plan. DEBBIE GREEN, BJ [id number]/[facility] #: [id number] [facility]
[2019-09-27 21:42] LABS: Urine Appearance Clear; Urine Bilirubin Negative (Negative); Urine Blood Negative (Negative); Urine Color Yellow; Urine Glucose 3+(>=500 mg/dL) (Negative); Urine Ketones 1+ (Negative); Urine Nitrite Negative (Negative); Urine Protein Negative (Negative); Urine Specific Gravity 1.031 (1.010-1.030); Urine Urobilinogen Negative (Negative)
[2019-09-27] MEDS: Cefepime 2 GM in Dextrose(*) 2 GM/50 ML BAG IV SCH (23:42)
[2019-09-28] MEDS: Vancomycin(*) 1,000 MG in NS 0.9% 250 ML* 250 ML IV SCH ×3 (04:27→21:35)
[2019-09-28 05:50] LABS: ABS Lymphocytes 0.7 10^3/ul (1.0-4.8); ABS Monocytes 0.5 10^3/ul (0-0.8); ABS Neutrophils 4.7 10^3/ul (1.5-7.7); Eosinophil % 0.6 %; Hematocrit 34 % (42-52); Hemoglobin 11.1 g/dL (14.0-18.0); Lymphocyte % 11.8 %; Mean Corpuscular HGB Conc 33 g/dL (31-36); Mean Corpuscular Hemoglobin 24 pg (27-31); Mean Corpuscular Volume 75 fL (80-94); Mean Platelet Volume 6.3 fL (7.4-10.4); Nucleated Red Blood Cells % 0.1; Platelet Count 167 10^3/uL (150-450); Red Blood Count 4.54 10^6 /uL (4.18-5.48); Red Cell Distribution Width 15 % (10-15); White Blood Count 5.9 10^3/uL (3.5-10.8)
[2019-09-28 05:58] LABS: BUN/Creatinine Ratio 21.5 (8-20); Calcium 8.1 mg/dL (8.6-10.3); EGFR African American 151.1 (>60); EGFR Non-African American 124.9 (>60)
[2019-09-28] MEDS: Aspirin 81 mg CHEW TAB* 81 MG TAB.CHEW PO SCH (08:05)
[2019-09-28] MEDS: Dextrose 50% VIAL 50 ml IV PUSH PRN ×2 (08:49→13:03)
[2019-09-28] MEDS: Insulin LISPRO* 1 UNITS UNIT SUBCUT SCH ×2 (08:49→13:09)
[2019-09-28] MEDS: Cefepime 2 GM in Dextrose(*) 2 GM/50 ML BAG IV SCH ×2 (09:37→20:08)
--- NOTE | 2019-09-28 10:04 | CONS ---
CONSULTATION REPORT: DATE OF CONSULT: 09/28/19 REQUESTING PHYSICIAN: Debbie Green NP CONSULTING SERVICE: Infectious Disease. REASON FOR CONSULTATION: Right foot infection. IMPRESSION: 1. Non-pressure wound, right lateral dorsal forefoot with acute osteomyelitis, question underlying abscess. There is cellulitis as well. 2. Type 2 diabetes with peripheral neuropathy. 3. Obesity. RECOMMENDATION: Continue vancomycin, goal trough 15 [address] a [address] of the foot to evaluate for abscess, but we will otherwise plan to treat him for osteomyelitis. We will recheck an ASIYA, which was last done in 2018. HISTORY OF PRESENT ILLNESS: This is a 59-year-old male with diabetes, history of foot infections, most recently of the right great toe and now a right lateral forefoot ulcer for a couple of months followed with the wound clinic. He had an outpatient wound culture a couple of weeks ago, it grew MRSA, proteus , prevotella. He was in for a cast yesterday, was afebrile and directed to the ER. He has had another wound culture taken that shows gram-positive cocci, gram -negative coccobacilli , gram-positive bacilli. PCR is positive for MRSA. CRP was 65. X-ray of his right foot showed osteolysis of distal metaphysis, heads of the third, fourth and fifth metatarsal, most prominent at the third metatarsal, and osteolysis at the base of the fourth and fifth proximal phalanges, soft tissue swelling in the plantar aspect of the forefoot, and a soft tissue ulcer subjacent to the metatarsal phalangeal region. There were also sclerotic changes to the first distal phalanx. He had a prior osteomyelitis of the great toe that has resolved and has not had any return of erythema or edema in that toe. PAST MEDICAL HISTORY: 1. Obesity. 2. Type 2 diabetes with peripheral neuropathy. 3. History of foot infection, status post left third toe amputation. 4. History of small bowel obstruction, status post laparotomy. ALLERGIES: No known drug allergies. MEDICATIONS: 1. Tylenol. 2. Aspirin. 3. Cefepime 2 g IV every 12 hours. 3. Vancomycin 1 g every 8 hours. SOCIAL HISTORY: Works at [employer] Lives in [place]. No sick contact. FAMILY HISTORY: Hypertension. REVIEW OF SYSTEMS: All negative except as noted above to a 12-point review of systems. PHYSICAL EXAM: Vital Signs: Temperature is 37, heart rate 90, respiratory rate 16, blood pressure 112/70, oxygen saturation 100% on room air. In general , he is awake, not in distress. Neurologic: He is oriented x3, follows all commands. HEENT: There is no conjunctival hemorrhage. Oropharynx without lesions. Neck is supple without mass. Heart is regular rate and rhythm without murmurs, rubs, or gallops. Lungs are clear to auscultation bilaterally. Abdomen: Soft, nontender, nondistended. Bowel sounds present. Skin: There is no rash or splinter hemorrhage. Musculoskeletal: The right foot has diffuse edema and warmth in the lateral forefoot without fluctuance. There is a plantar forefoot ulcer with some purulent drainage. LABORATORY DATA: White blood cell count 5, hemoglobin 11, platelets 167, creatinine is 0.6, influenza PCR negative. Urinalysis 2+ ketones. Please see impression and recommendations outlined above that I discussed with Debbie Green NP. [id number]/[facility] #: [id number] [facility]
--- NOTE | 2019-09-28 15:48 | CONS ---
AMENDED REPORT NOW INCLUDES DATE OF CONSULT CONSULTATION REPORT: DATE OF CONSULT: 09/28/19 ATTENDING ORTHOPEDIC PROVIDER: Dr. Murphy Solo. PRIMARY CARE PROVIDER: Dr. Perez. CHIEF COMPLAINT: Fever and right foot ulcer. HISTORY OF PRESENT ILLNESS: The patient is a 59-year-old male. He has a past medical history significant for diabetes, hypertension, and ulcer of the plantar aspect of the right foot. For this ulcer has been followed by the wound clinic for a couple of months, but in the past 2 weeks, the patient had acute worsening of the ulcer, it became red, painful, and was draining a purulent material when he presented to the wound clinic. On 09/26/19, he was sent to the emergency room. Wound cultures are MRSA positive, Staph aureus positive and Proteus mirabilis positive. Since admission, the patient has been on vanco and cefepime. He has been seen by the infectious disease service. He reports pain has decreased in the right foot since starting antibiotics, though he continues to have a foul smelling purulent drainage from this. PAST MEDICAL HISTORY: Type 2 diabetes, left third toe amputation, obesity, history of small bowel obstruction. HOME MEDICATIONS: 1. Glipizide 5 mg p.o. b.i.d. 2. Losartan 50 mg p.o. daily. 3. Metformin 1000 mg p.o. b.i.d. 4. Acetaminophen 650 mg q.4 hours p.r.n. 5. Farxiga 10 mg p.o. daily. 6. Aspirin 81 mg daily. 7. Januvia 100 mg p.o. daily. 8. Viagra 50 mg p.r.n. 9. Actos 30 mg p.o. daily. ALLERGIES: No known drug allergies. FAMILY HISTORY: Significant for hypertension. SOCIAL HISTORY: The patient works at [employer], lives in [place]. REVIEW OF SYSTEMS: General: Positive for feeling of fever at admission. No longer feeling febrile. HEENT: Denies any headache or vision change. Cardiac : Denies any chest pain. Respiratory: Denies any shortness of breath. Abdomen : Denies any nausea, vomiting, diarrhea. Musculoskeletal: Positive for right foot pain and redness and drainage, which is improved with admission and antibiotics. Neuro: Reports sensation in his bilateral lower extremities, some decreased sensation. PHYSICAL EXAM: Vital Signs: Temperature 97.4, pulse rate 96, respiratory rate 16, oxygen saturation 100% on room air, and blood pressure 123/73. General: Nontoxic appearing, no acute distress. Respiratory: Normal rate and effort of breathing. Abdomen: No obvious distention. Musculoskeletal: Moving bilateral upper extremities and left lower extremity. Skin envelope intact. Nontender to palpation. Able to flex and extend all joints without pain. Right lower extremity: Skin envelope is intact aside from plantar ulcer on the right foot overlying the second metatarsal. This is roughly dime size. There is purulent drainage. It is foul smelling. There is no erythema surrounding. The foot is edematous. There are palpable DP and PT pulse. He is able to flex and extend the toes as well as ankle without pain. No pain with range of motion of the hip or the knee. DIAGNOSTIC STUDIES/LAB DATA: White blood cell count 5.9, hemoglobin 11.1, hematocrit 34. Sodium 140, potassium 4.0. CRP was 66 on admission. Right foot x-ray: Osteolysis of the distal metaphysis of the third, fourth, and fifth metatarsals and osteolysis at the bases of the fourth and fifth proximal phalanges. ASSESSMENT: Infected ulceration of the plantar aspect of the right foot, probably osteomyelitis PLAN: The patient can be heel weightbearing on the right lower extremity, keep open wound dressed. ABIs and MRI have been ordered. Continue on IV antibiotics guided by infectious disease service, currently on vancomycin as well as cefepime. We will follow ASIYA/ MRI results to determine need for surgical intervention. SOPHIE PROCTOR [id number]/[facility] #: [id number] MTDD
--- NOTE | 2019-09-28 16:01 | PN ---
Subjective Date of Service: 09/28/19 Interval History: Patient with no complaints , no fever overnight. Denies chills. Denies chest pain or shortness of breath. denies abd pain n/v/d. Family History: Unchanged from Admission Social History: Unchanged from Admission Past Medical History: Unchanged from Admission Objective Active Medications: Acetaminophen (Tylenol Tab*) 650 mg PO Q4H PRN PRN Reason: MILD PAIN or TEMP > 100.4 Aspirin (Aspirin 81 Mg Chew Tab*) 81 mg PO DAILY [facility] Last Admin: 09/28/19 08:05 Dose: 81 mg Dextrose (Dextrose 50% Vial 50 Ml*) 25 ml IV PUSH .FOR FS < 60 - SS PRN PRN Reason: FS < 60 Last Admin: 09/28/19 13:03 Dose: 25 ml Enoxaparin Sodium (Lovenox(*)) 40 mg SUBCUT Q24H [facility] Last Admin: 09/27/19 21:09 Dose: 40 mg Sodium Chloride (Ns 0.9% 1000 Ml) 1,000 mls @ 75 mls/hr IV PER RATE [facility] Last Admin: 09/27/19 23:42 Dose: 75 mls/hr Cefepime HCl (Maxipime 2 Gm In Dextrose Duplex (*)) 2 gm in 50 mls @ 100 mls/ hr IV Q12H [facility] Last Admin: 09/28/19 09:37 Dose: 100 mls/hr Vancomycin HCl 1,000 mg/ (Sodium Chloride) 250 mls @ 166.667 mls/hr IV Q8H [facility] Last Admin: 09/28/19 12:50 Dose: 166.667 mls/hr Pharmacy Consult (Vancomycin Per Pharmacy*) 1 note FOLLOW UP .VANC PER PHARMACY [facility]; Protocol Pharmacy Profile Note (Vancomycin Trough Check) 1 note FOLLOW UP 1230 ONE Stop: 09/29/19 12:31 Vital Signs - 8 hr 09/28/19 09/28/19 09/28/19 08:00 10:33 11:33 Temperature 97.4 F 97.4 F Pulse Rate 98 96 Respiratory 18 16 Rate Blood Pressure 129/79 123/73 (mmHg) O2 Sat by Pulse 100 100 100 Oximetry Oxygen Devices in Use Now: None Appearance: appears comfortable resting in bed , no acute distress Eyes: No Scleral Icterus Ears/Nose/Mouth/Throat: Clear Oropharnyx, Mucous Membranes Moist Neck: NL Appearance and Movements; NL JVP, Trachea Midline Respiratory: Symmetrical Chest Expansion and Respiratory Effort, Clear to Auscultation Cardiovascular: NL Sounds; No Murmurs; No JVD, No Edema Abdominal: NL Sounds; No Tenderness; No Distention Extremities: No Edema, No Clubbing, Cyanosis, - - right foot with open ulceration noted to the plantar aspect of his right foot small amount of purlent drainage noted Skin: - - ulcer noted to the plantar aspect of the right foot Neurological: Alert and Oriented x 3 Nutrition: Taking PO's Result Diagrams: 09/29/19 05:17 09/29/19 05:17 Microbiology and Other Data: Microbiology 09/27/19 15:44 Aerobic Blood Culture - Preliminary Blood Venous No Growth Day 1 Anaerobic Blood Culture - Preliminary No Growth Day 1 09/27/19 18:19 Skin and Soft Tissue MRSA/MSSA (PCR - Final Foot Right Mrsa Positive S.aureus Positive Gram Stain - Final Wound Culture - Preliminary Proteus Mirabilis Assess/Plan/Problems-Billing Assessment: Mr. Andrews is a 59 y.o male with a pmhx significant for DM type II and htn who presented to the ER with fever an chills found tohave ulcer to the plantar aspect of the right foot with purulent drainage. Met sepsis criteria with fever , tachycardia and cellulitis / ulcer to the right foot. - Patient Problems (1) Sepsis Current Visit: Yes Status: Acute Comment: resolved met sepsis on admission with tachycardia, fever and right foot ulcer as source - xray showed osteomyelitis - ID and Orthopedics consulted - will continue cefepime and Vancomycin - Blood culture - no growth x 1 day - wound culture with proteus mirabilis, MRSA,MSSA - sensitivity pending MRI pending ASIYA - Pending (2) Infected ulcer of skin Current Visit: No Status: Acute Code(s): L98.499 - NON-PRESSURE CHRONIC ULCER OF SKIN OF SITES W UNSP SEVERITY; L08.9 - LOCAL INFECTION OF THE SKIN AND SUBCUTANEOUS TISSUE, UNSP SNOMED Code(s): 3343075 Comment: Plan as above - will continue cefepime and vancomycin (3) Cellulitis Current Visit: No Status: Acute Code(s): L03.90 - CELLULITIS, UNSPECIFIED SNOMED Code(s): 806787460 Comment: mild - ID consulted - - Antibiotics cefepime and vancomycin - culture positive for MRSA and MSSA and proteus mirabilis (4) Diabetes Current Visit: No Status: Acute Code(s): E11.9 - TYPE 2 DIABETES MELLITUS WITHOUT COMPLICATIONS SNOMED Code(s): 71190001 Comment: - Finger sticks AC - Lispro sliding scale -d/c'd d/t hypoglycemia with blood sugar of 42 this AM (5) HTN (hypertension) Current Visit: No Status: Acute Code(s): I10 - ESSENTIAL (PRIMARY) HYPERTENSION SNOMED Code(s): 16048313 Comment: - stable - held losartan - d/t underlying sepsis (6) DVT prophylaxis Current Visit: No Status: Acute Code(s): IPE9938 - SNOMED Code(s): 178144091 Comment: - SubQ Heparin (7) Full code status Current Visit: No Status: Acute Code(s): Z78.9 - OTHER SPECIFIED HEALTH STATUS SNOMED Code(s): 195281611
[2019-09-28] MEDS: Enoxaparin(*) 40 MG/0.4 ML SYR SUBCUT SCH (20:08)
[2019-09-29] MEDS: Vancomycin(*) 1,000 MG in NS 0.9% 250 ML* 250 ML IV SCH ×2 (04:58→13:20)
[2019-09-29 06:24] LABS: Hematocrit 32 % (42-52); Hemoglobin 10.7 g/dL (14.0-18.0); Mean Corpuscular HGB Conc 33 g/dL (31-36); Mean Corpuscular Hemoglobin 25 pg (27-31); Mean Corpuscular Volume 74 fL (80-94); Mean Platelet Volume 6.5 fL (7.4-10.4); Platelet Count 169 10^3/uL (150-450); Red Blood Count 4.35 10^6 /uL (4.18-5.48); Red Cell Distribution Width 15 % (10-15); White Blood Count 4.4 10^3/uL (3.5-10.8)
[2019-09-29 06:25] LABS: BUN/Creatinine Ratio 17.5 (8-20); C Reactive Protein 53.75 mg/L (<8.01); Calcium 8.2 mg/dL (8.6-10.3); EGFR African American 175.8 (>60); EGFR Non-African American 145.3 (>60); Potassium 4.3 mmol/L (3.5-5.0)
[2019-09-29] MEDS: Cefepime 2 GM in Dextrose(*) 2 GM/50 ML BAG IV SCH ×2 (07:58→21:07)
[2019-09-29 08:22] LABS: ABS Lymphocytes 0.7 10^3/ul (1.0-4.8); ABS Monocytes 0.4 10^3/ul (0-0.8); ABS Neutrophils 3.1 10^3/ul (1.5-7.7); Eosinophil % 0.9 %; Nucleated Red Blood Cells % 0.1
[2019-09-29] MEDS ORDERED: Dextrose 50% VIAL 50 ml IV PUSH PRN (11:43)
[2019-09-29] MEDS: Insulin LISPRO* 1 UNITS UNIT SUBCUT SCH ×2 (12:30→17:59)
[2019-09-29] MEDS: Aspirin 81 mg CHEW TAB* 81 MG TAB.CHEW PO SCH (12:30)
[2019-09-29] MEDS ORDERED: Vancomycin Trough Check NOTE FOLLOW UP ONE (12:30)
[2019-09-29] MEDS: Vancomycin(*) 1,250 MG in NS 0.9% 250 ML* 250 ML IVPB SCH ×2 (13:44→21:51)
--- NOTE | 2019-09-29 15:53 | PN ---
Progress Note - Progress Note Date of Service: 09/29/19 SOAP: Subjective: Pt is doing well. No pain. Denied F/C, CP/SOB or calf pain Objective: PE- 59 y/o WDWN F NAD RLE- 2 cm ulcer plantar aspect over 4th metatarsal head. Minimal surrounding erythema. No active drainage. calf soft NT, +DF/PF ankle, NVI distally, mildy decreased sensation over 4th and 5th digits due to neuropathy, +2 DP pulse Vital Signs Temp Pulse Resp BP Pulse Ox 97.8 F 102 17 154/83 98 09/29/19 10:55 09/29/19 10:55 09/29/19 10:55 09/29/19 10:55 09/29/19 10:55 Laboratory Results - last 24 hr 09/28/19 09/28/19 09/28/19 12:57 13:43 17:35 WBC RBC Hgb Hct MCV MCH MCHC RDW Plt Count MPV Neut % (Auto) Lymph % (Auto) Blair % (Auto) Eos % (Auto) Baso % (Auto) Absolute Neuts (auto) Absolute Lymphs (auto) Absolute Monos (auto) Absolute Eos (auto) Absolute Basos (auto) Absolute Nucleated RBC Nucleated RBC % Sodium Potassium Chloride Carbon Dioxide Anion Gap BUN Creatinine Est GFR ( Amer) Est GFR (Non-Af Amer) BUN/Creatinine Ratio Glucose POC Glucose (mg/dL) 31 L* 97 242 H Calcium C-Reactive Protein Vancomycin Trough 09/28/19 09/28/19 09/29/19 20:17 20:22 00:30 WBC RBC Hgb Hct MCV MCH MCHC RDW Plt Count MPV Neut % (Auto) Lymph % (Auto) Blair % (Auto) Eos % (Auto) Baso % (Auto) Absolute Neuts (auto) Absolute Lymphs (auto) Absolute Monos (auto) Absolute Eos (auto) Absolute Basos (auto) Absolute Nucleated RBC Nucleated RBC % Sodium Potassium Chloride Carbon Dioxide Anion Gap BUN Creatinine Est GFR ( Amer) Est GFR (Non-Af Amer) BUN/Creatinine Ratio Glucose POC Glucose (mg/dL) 344 H 356 H 343 H Calcium C-Reactive Protein Vancomycin Trough 09/29/19 09/29/19 09/29/19 05:17 05:17 07:58 WBC 4.4 RBC 4.35 Hgb 10.7 L Hct 32 L MCV 74 L MCH 25 L MCHC 33 RDW 15 Plt Count 169 MPV 6.5 L Neut % (Auto) 72.1 Lymph % (Auto) 17.0 Blair % (Auto) 9.6 Eos % (Auto) 0.9 Baso % (Auto) 0.4 Absolute Neuts (auto) 3.1 Absolute Lymphs (auto) 0.7 L Absolute Monos (auto) 0.4 Absolute Eos (auto) 0.0 Absolute Basos (auto) 0.0 Absolute Nucleated RBC 0.0 Nucleated RBC % 0.1 Sodium 135 Potassium 4.3 Chloride 108 Carbon Dioxide 24 Anion Gap 3 BUN 10 Creatinine 0.57 L Est GFR ( Amer) 175.8 Est GFR (Non-Af Amer) 145.3 BUN/Creatinine Ratio 17.5 Glucose 265 H POC Glucose (mg/dL) 128 H Calcium 8.2 L C-Reactive Protein 53.75 H Vancomycin Trough 09/29/19 11:58 WBC RBC Hgb Hct MCV MCH MCHC RDW Plt Count MPV Neut % (Auto) Lymph % (Auto) Blair % (Auto) Eos % (Auto) Baso % (Auto) Absolute Neuts (auto) Absolute Lymphs (auto) Absolute Monos (auto) Absolute Eos (auto) Absolute Basos (auto) Absolute Nucleated RBC Nucleated RBC % Sodium Potassium Chloride Carbon Dioxide Anion Gap BUN Creatinine Est GFR ( Amer) Est GFR (Non-Af Amer) BUN/Creatinine Ratio Glucose POC Glucose (mg/dL) Calcium C-Reactive Protein Vancomycin Trough 11.1 Studies: MRI right foot revealed abscess of 4th MTP and osteomyelitis of the 4th MT ASIYA right foot was WNL Assessment: Right foot ulcer with osteomyelitis Plan: Heel weight bearing WBC and CRP improving Continue abx per ID It was explained to the patient that he may require surgery/amputation for treatment of the infection. He would like to try antibiotic therapy first to avoid surgery. Dr. Mayer to discuss with infectious disease to see if this is recommended Ortho will cont to follow to monitor ulcer
--- NOTE | 2019-09-29 17:24 | PN ---
Subjective Date of Service: 09/29/19 Interval History: Patient with no complaints. Updated on test result and the finding of abscess and osteomyelitis in the right foot. Denies fever or chills. Denies chest pain or shortness of breath. Denies abd pain n/v/d. Denies pain to right foot. Right foot with continued swelling and redness Family History: Unchanged from Admission Social History: Unchanged from Admission Past Medical History: Unchanged from Admission Objective Active Medications: Acetaminophen (Tylenol Tab*) 650 mg PO Q4H PRN PRN Reason: MILD PAIN or TEMP > 100.4 Aspirin (Aspirin 81 Mg Chew Tab*) 81 mg PO DAILY [facility] Last Admin: 09/29/19 12:30 Dose: 81 mg Dextrose (Dextrose 50% Vial 50 Ml*) 25 ml IV PUSH .FOR FS < 60 - SS PRN PRN Reason: FS < 60 Last Admin: 09/28/19 13:03 Dose: 25 ml Dextrose (Dextrose 50% Vial 50 Ml*) 25 ml IV PUSH .FOR FS < 60 - SS PRN PRN Reason: FS < 60 Enoxaparin Sodium (Lovenox(*)) 40 mg SUBCUT Q24H [facility] Last Admin: 09/28/19 20:08 Dose: 40 mg Cefepime HCl (Maxipime 2 Gm In Dextrose Duplex (*)) 2 gm in 50 mls @ 100 mls/ hr IV Q12H [facility] Last Admin: 09/29/19 07:58 Dose: 100 mls/hr Vancomycin HCl 1,250 mg/ (Sodium Chloride) 250 mls @ 166.667 mls/hr IVPB Q8H [facility] Last Admin: 09/29/19 13:44 Dose: 166.667 mls/hr Insulin Human Lispro (Humalog*) 0 units SUBCUT AC [facility]; Protocol Last Admin: 09/29/19 12:30 Dose: 6 units Pharmacy Consult (Vancomycin Per Pharmacy*) 1 note FOLLOW UP .VANC PER PHARMACY [facility]; Protocol Pharmacy Profile Note (Vancomycin Trough Check) 1 note FOLLOW UP ONCE ONE Stop: 10/01/19 05:01 Vital Signs - 8 hr 09/29/19 10:55 Temperature 97.8 F Pulse Rate 102 Respiratory 17 Rate Blood Pressure 154/83 (mmHg) O2 Sat by Pulse 98 Oximetry Oxygen Devices in Use Now: None Appearance: alert and oriented x 3 , no acute distress Eyes: No Scleral Icterus Ears/Nose/Mouth/Throat: Clear Oropharnyx, Mucous Membranes Moist Neck: NL Appearance and Movements; NL JVP, Trachea Midline Respiratory: Symmetrical Chest Expansion and Respiratory Effort, Clear to Auscultation Cardiovascular: NL Sounds; No Murmurs; No JVD Abdominal: NL Sounds; No Tenderness; No Distention Extremities: No Clubbing, Cyanosis, - - right foot with redness and swelling , planter aspect with open wound with purlent drainage. Skin: - - right foot with open wound and drainage, right and sweling Neurological: Alert and Oriented x 3 Result Diagrams: 09/29/19 05:17 09/29/19 05:17 Microbiology and Other Data: Microbiology 09/27/19 15:44 Aerobic Blood Culture - Preliminary Blood Venous No Growth Day 1 Anaerobic Blood Culture - Preliminary No Growth Day 1 09/27/19 18:19 Skin and Soft Tissue MRSA/MSSA (PCR - Final Foot Right Mrsa Positive S.aureus Positive Gram Stain - Final Wound Culture - Preliminary Proteus Mirabilis Assess/Plan/Problems-Billing Assessment: Mr. Andrews is a 59 y.o male with a pmhx significant for DM type II and htn who presented to the ER with fever an chills found tohave ulcer to the plantar aspect of the right foot with purulent drainage. Met sepsis criteria with fever , tachycardia and cellulitis / ulcer to the right foot. 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 Orthopedics consulted- following patient may require surgery - will continue cefepime and Vancomycin - Blood culture - no growth day#2 - wound culture with proteus mirabilis, MRSA,MSSA - sensitivity pending ASIYA - WNL (2) Infected ulcer of skin Current Visit: No Status: Acute Code(s): L98.499 - NON-PRESSURE CHRONIC ULCER OF SKIN OF SITES W UNSP SEVERITY; L08.9 - LOCAL INFECTION OF THE SKIN AND SUBCUTANEOUS TISSUE, UNSP SNOMED Code(s): 7707278 Comment: Plan as above - will continue cefepime and vancomycin (3) Cellulitis Current Visit: No Status: Acute Code(s): L03.90 - CELLULITIS, UNSPECIFIED SNOMED Code(s): 236972219 Comment: mild - ID consulted - Antibiotics cefepime and vancomycin - culture positive for MRSA and MSSA and proteus mirabilis (4) Diabetes Current Visit: No Status: Acute Code(s): E11.9 - TYPE 2 DIABETES MELLITUS WITHOUT COMPLICATIONS SNOMED Code(s): 66588068 Comment: - Finger sticks AC - Lispro sliding scale -d/c'd d/t hypoglycemia with blood sugar of 42 this AM (5) HTN (hypertension) Current Visit: No Status: Acute Code(s): I10 - ESSENTIAL (PRIMARY) HYPERTENSION SNOMED Code(s): 65491496 Comment: - stable - held losartan - d/t underlying sepsis (6) DVT prophylaxis Current Visit: No Status: Acute Code(s): XIG2845 - SNOMED Code(s): 660456086 Comment: - SubQ Heparin (7) Full code status Current Visit: No Status: Acute Code(s): Z78.9 - OTHER SPECIFIED HEALTH STATUS SNOMED Code(s): 073408320
[2019-09-29] MEDS: Enoxaparin(*) 40 MG/0.4 ML SYR SUBCUT SCH (20:38)
[2019-09-30 05:15] LABS: BUN/Creatinine Ratio 15.3 (8-20); Calcium 8.4 mg/dL (8.6-10.3); EGFR Non-African American 139.7 (>60)
[2019-09-30] MEDS: Vancomycin(*) 1,250 MG in NS 0.9% 250 ML* 250 ML IVPB SCH ×3 (05:21→21:21)
[2019-09-30] MEDS: Insulin LISPRO* 1 UNITS UNIT SUBCUT SCH ×3 (07:37→17:28)
[2019-09-30] MEDS: Aspirin 81 mg CHEW TAB* 81 MG TAB.CHEW PO SCH (07:38)
[2019-09-30] MEDS: Cefepime 2 GM in Dextrose(*) 2 GM/50 ML BAG IV SCH ×2 (07:53→20:27)
--- NOTE | 2019-09-30 14:43 | PN ---
Progress Note - Progress Note Date of Service: 09/30/19 Note: Right foot ulcer and osteomyelitis: Patient resting comfortably in bed with intact bandage. Denies fever, or chills and has intact appetite. Bandage is removed to reveal a 1cm ulcer at the head of the 4th metatarsal. Scant serosanguinous drainage on bandage without erythema or odor. Foot is edematous with intact but altered sensation. Foot warm with 2+ DP pulse. Wound dressed with clean gauze, cling and ZEKE. Patient awaiting PICC placement and further guidance from Dr. Carmen on Wednesday. Continue abx and heel weight bearing activity as tolerated. We will continue to monitor.
--- NOTE | 2019-09-30 15:17 | PN ---
Subjective Date of Service: 09/30/19 Interval History: patient with no complaints - receiving IV antibiotics for osteomyelitis and right foot abscess. Denies fever or chills. Denies chest pain or shortness of breath. Denies abd pain n/v/d. Family History: Unchanged from Admission Social History: Unchanged from Admission Past Medical History: Unchanged from Admission Objective Active Medications: Acetaminophen (Tylenol Tab*) 650 mg PO Q4H PRN PRN Reason: MILD PAIN or TEMP > 100.4 Aspirin (Aspirin 81 Mg Chew Tab*) 81 mg PO DAILY [facility] Last Admin: 09/30/19 07:38 Dose: 81 mg Dextrose (Dextrose 50% Vial 50 Ml*) 25 ml IV PUSH .FOR FS < 60 - SS PRN PRN Reason: FS < 60 Last Admin: 09/28/19 13:03 Dose: 25 ml Dextrose (Dextrose 50% Vial 50 Ml*) 25 ml IV PUSH .FOR FS < 60 - SS PRN PRN Reason: FS < 60 Enoxaparin Sodium (Lovenox(*)) 40 mg SUBCUT Q24H [facility] Last Admin: 09/29/19 20:38 Dose: 40 mg Cefepime HCl (Maxipime 2 Gm In Dextrose Duplex (*)) 2 gm in 50 mls @ 100 mls/ hr IV Q12H [facility] Last Admin: 09/30/19 07:53 Dose: 100 mls/hr Vancomycin HCl 1,250 mg/ (Sodium Chloride) 250 mls @ 166.667 mls/hr IVPB Q8H [facility] Last Admin: 09/30/19 13:38 Dose: 166.667 mls/hr Insulin Human Lispro (Humalog*) 0 units SUBCUT AC [facility]; Protocol Last Admin: 09/30/19 12:09 Dose: 4 units Pharmacy Consult (Vancomycin Per Pharmacy*) 1 note FOLLOW UP .VANC PER PHARMACY [facility]; Protocol Pharmacy Profile Note (Vancomycin Trough Check) 1 note FOLLOW UP ONCE ONE Stop: 10/01/19 05:01 Vital Signs - 8 hr 09/30/19 09/30/19 09/30/19 07:41 08:00 11:50 Temperature 97.9 F 97.5 F Pulse Rate 83 86 Respiratory 18 13 14 Rate Blood Pressure 134/71 139/74 (mmHg) O2 Sat by Pulse 99 100 99 Oximetry Oxygen Devices in Use Now: None Appearance: appears comfortable resting in bed, no acute distress, alert and oriented x 3 Eyes: No Scleral Icterus Ears/Nose/Mouth/Throat: Clear Oropharnyx, Mucous Membranes Moist Neck: NL Appearance and Movements; NL JVP, Trachea Midline Respiratory: Symmetrical Chest Expansion and Respiratory Effort, Clear to Auscultation Abdominal: NL Sounds; No Tenderness; No Distention Extremities: No Edema, No Clubbing, Cyanosis Skin: - - right foot with redness and swelling, small amount of purlent drainage from the plantar foot ulcer Neurological: Alert and Oriented x 3 Nutrition: Taking PO's Result Diagrams: 09/29/19 05:17 09/30/19 04:26 Microbiology and Other Data: Microbiology 09/27/19 15:44 Aerobic Blood Culture - Preliminary Blood Venous No Growth Day 1 Anaerobic Blood Culture - Preliminary No Growth Day 1 09/27/19 18:19 Skin and Soft Tissue MRSA/MSSA (PCR - Final Foot Right Mrsa Positive S.aureus Positive Gram Stain - Final Wound Culture - Preliminary Proteus Mirabilis Assess/Plan/Problems-Billing Assessment: Mr. Andrews is a 59 y.o male with a pmhx significant for DM type II and htn who presented to the ER with fever an chills found tohave ulcer to the plantar aspect of the right foot with purulent drainage. Met sepsis criteria with fever , tachycardia and cellulitis / ulcer to the right foot. - Patient Problems (1) Sepsis Current Visit: Yes Status: Acute Comment: resolved met sepsis on admission with tachycardia, fever and right foot ulcer as source - xray/ MRI showed osteomyelitis - - ID consulted - recommended cefepime and vancomycin for now, will place picc as patient will need [facility] antibiotics Orthopedics consulted- following patient may require surgery - will continue cefepime and Vancomycin - Blood culture - no growth day#2- blood in 1 bottle shows Gamella Morbillorum- suspect contaminant - wound culture with proteus mirabilis, MRSA,MSSA - sensitivity pending ASIYA - WNL (2) Infected ulcer of skin Current Visit: No Status: Acute Code(s): L98.499 - NON-PRESSURE CHRONIC ULCER OF SKIN OF SITES W UNSP SEVERITY; L08.9 - LOCAL INFECTION OF THE SKIN AND SUBCUTANEOUS TISSUE, UNSP SNOMED Code(s): 0338394 Comment: Plan as above - will continue cefepime and vancomycin (3) Cellulitis Current Visit: No Status: Acute Code(s): L03.90 - CELLULITIS, UNSPECIFIED SNOMED Code(s): 112848359 Comment: mild - ID consulted - Antibiotics cefepime and vancomycin - culture positive for MRSA and MSSA and proteus mirabilis (4) Diabetes Current Visit: No Status: Acute Code(s): E11.9 - TYPE 2 DIABETES MELLITUS WITHOUT COMPLICATIONS SNOMED Code(s): 35642283 Comment: - Finger sticks AC - Lispro sliding scale (5) HTN (hypertension) Current Visit: No Status: Acute Code(s): I10 - ESSENTIAL (PRIMARY) HYPERTENSION SNOMED Code(s): 95008162 Comment: - stable - held losartan - d/t underlying sepsis/ infection (6) DVT prophylaxis Current Visit: No Status: Acute Code(s): HQH7974 - SNOMED Code(s): 151616069 Comment: - SubQ Heparin (7) Full code status Current Visit: No Status: Acute Code(s): Z78.9 - OTHER SPECIFIED HEALTH STATUS SNOMED Code(s): 109294181 Status and Disposition: inpatient
[2019-09-30] MEDS: Enoxaparin(*) 40 MG/0.4 ML SYR SUBCUT SCH (20:27)
[2019-10-01] MEDS ORDERED: Vancomycin Trough Check NOTE FOLLOW UP ONE (05:00)
[2019-10-01 08:13] LABS: Hematocrit 35 % (42-52); Hemoglobin 11.8 g/dL (14.0-18.0); Mean Corpuscular HGB Conc 34 g/dL (31-36); Mean Corpuscular Hemoglobin 25 pg (27-31); Mean Corpuscular Volume 74 fL (80-94); Mean Platelet Volume 6.4 fL (7.4-10.4); Platelet Count 175 10^3/uL (150-450); Red Blood Count 4.76 10^6 /uL (4.18-5.48); Red Cell Distribution Width 15 % (10-15)
[2019-10-01 08:35] LABS: EGFR African American 162.6 (>60); EGFR Non-African American 134.4 (>60)
[2019-10-01 08:36] LABS: BUN/Creatinine Ratio 16.1 (8-20); Calcium 8.7 mg/dL (8.6-10.3); EGFR African American 159.6 (>60); EGFR Non-African American 131.9 (>60); Vancomycin Trough 10.8 mcg/mL
[2019-10-01] MEDS: Vancomycin(*) 1,250 MG in NS 0.9% 250 ML* 250 ML IVPB SCH (08:59)
[2019-10-01] MEDS: Insulin LISPRO* 1 UNITS UNIT SUBCUT SCH ×3 (09:00→17:30)
[2019-10-01] MEDS: Aspirin 81 mg CHEW TAB* 81 MG TAB.CHEW PO SCH (09:00)
[2019-10-01 10:22] LABS: Potassium 4.2 mmol/L (3.5-5.0)
[2019-10-01] MEDS: Cefepime 2 GM in Dextrose(*) 2 GM/50 ML BAG IV SCH ×2 (11:02→20:55)
[2019-10-01] MEDS: Losartan TAB* 25 MG PO SCH (11:05)
--- NOTE | 2019-10-01 11:37 | PN ---
Progress Note - Progress Note Date of Service: 10/01/19 Note: Right foot ulcer and osteomyelitis: Patient found dressing intolerable yesterday. He did not feel it was too tight, but just "too much". The foot is open to air today, draining serosanguinous fluid onto a neda. Foot edema is greatly improved with bony landmarks of the foot and ankle appreciable today. No erythema, odor or purulent drainage. Plan to continue abx as per ID and PICC placement tomorrow. Daily dressing changes on discharge and f/u with our office 10-14 days after discharge. We will see tomorrow for plan discharge as per medicine.
--- NOTE | 2019-10-01 13:36 | PN ---
Subjective Date of Service: 10/01/19 Interval History: Patient reports that he is feeling well, no pain. Denies fever or chills. denies chest pain or shortness of breath. Denies abd pain n/v/d. Family History: Unchanged from Admission Social History: Unchanged from Admission Past Medical History: Unchanged from Admission Objective Active Medications: Acetaminophen (Tylenol Tab*) 650 mg PO Q4H PRN PRN Reason: MILD PAIN or TEMP > 100.4 Aspirin (Aspirin 81 Mg Chew Tab*) 81 mg PO DAILY [facility] Last Admin: 10/01/19 09:00 Dose: 81 mg Dextrose (Dextrose 50% Vial 50 Ml*) 25 ml IV PUSH .FOR FS < 60 - SS PRN PRN Reason: FS < 60 Last Admin: 09/28/19 13:03 Dose: 25 ml Dextrose (Dextrose 50% Vial 50 Ml*) 25 ml IV PUSH .FOR FS < 60 - SS PRN PRN Reason: FS < 60 Enoxaparin Sodium (Lovenox(*)) 40 mg SUBCUT Q24H [facility] Last Admin: 09/30/19 20:27 Dose: 40 mg Cefepime HCl (Maxipime 2 Gm In Dextrose Duplex (*)) 2 gm in 50 mls @ 100 mls/ hr IV Q12H [facility] Last Admin: 10/01/19 11:02 Dose: 100 mls/hr Vancomycin HCl 1,000 mg/ (Sodium Chloride) 250 mls @ 166.667 mls/hr IV Q6H [facility] Insulin Glargine (Lantus(*)) 5 units SUBCUT Q24H [facility] Insulin Human Lispro (Humalog*) 0 units SUBCUT AC [facility]; Protocol Last Admin: 10/01/19 12:23 Dose: 6 units Losartan Potassium (Cozaar Tab*) 50 mg PO DAILY [facility] Last Admin: 10/01/19 11:05 Dose: 50 mg Pharmacy Consult (Vancomycin Per Pharmacy*) 1 note FOLLOW UP .VANC PER PHARMACY [facility]; Protocol Pharmacy Profile Note (Vancomycin Trough Check) 1 note FOLLOW UP ONCE ONE Stop: 10/03/19 07:31 Vital Signs - 8 hr 10/01/19 10/01/19 10/01/19 07:40 08:00 11:47 Temperature 97.5 F 97.6 F Pulse Rate 85 81 Respiratory 16 16 18 Rate Blood Pressure 142/85 144/80 (mmHg) O2 Sat by Pulse 98 97 Oximetry Oxygen Devices in Use Now: None Appearance: appears comfortable . alert and oriented x 3, no acute distress Eyes: No Scleral Icterus Ears/Nose/Mouth/Throat: Clear Oropharnyx, Mucous Membranes Moist Neck: NL Appearance and Movements; NL JVP, Trachea Midline Respiratory: Symmetrical Chest Expansion and Respiratory Effort, Clear to Auscultation Cardiovascular: NL Sounds; No Murmurs; No JVD, No Edema Abdominal: NL Sounds; No Tenderness; No Distention Extremities: No Edema, No Clubbing, Cyanosis Skin: No Rash or Ulcers Neurological: Alert and Oriented x 3 Nutrition: Taking PO's Result Diagrams: 10/01/19 07:34 10/01/19 07:34 Microbiology and Other Data: Microbiology 09/27/19 15:44 Aerobic Blood Culture - Preliminary Blood Venous No Growth Day 1 Anaerobic Blood Culture - Preliminary No Growth Day 1 09/27/19 18:19 Skin and Soft Tissue MRSA/MSSA (PCR - Final Foot Right Mrsa Positive S.aureus Positive Gram Stain - Final Wound Culture - Preliminary Proteus Mirabilis Assess/Plan/Problems-Billing Assessment: Mr. Andrews is a 59 y.o male with a pmhx significant for DM type II and htn who presented to the ER with fever an chills found tohave ulcer to the plantar aspect of the right foot with purulent drainage. Met sepsis criteria with fever , tachycardia and cellulitis / ulcer to the right foot. - Patient Problems (1) Sepsis Current Visit: Yes Status: Acute Comment: resolved met sepsis on admission with tachycardia, fever and right foot ulcer as source - xray/ MRI showed osteomyelitis - - ID consulted - recommended cefepime and vancomycin for now, will place picc as patient will need longterm antibiotics Orthopedics consulted- following patient may require surgery - will continue cefepime and Vancomycin - Blood culture - no growth day#2- blood in 1 bottle shows Gamella Morbillorum- suspect contaminant - wound culture with proteus mirabilis, MRSA,MSSA - sensitivity pending ASIYA - WNL (2) Infected ulcer of skin Current Visit: No Status: Acute Code(s): L98.499 - NON-PRESSURE CHRONIC ULCER OF SKIN OF SITES W UNSP SEVERITY; L08.9 - LOCAL INFECTION OF THE SKIN AND SUBCUTANEOUS TISSUE, UNSP SNOMED Code(s): 3941534 Comment: Plan as above - will continue cefepime and vancomycin (3) Cellulitis Current Visit: No Status: Acute Code(s): L03.90 - CELLULITIS, UNSPECIFIED SNOMED Code(s): 836266830 Comment: mild - ID consulted - Antibiotics cefepime and vancomycin - culture positive for MRSA and MSSA and proteus mirabilis (4) Diabetes Current Visit: No Status: Acute Code(s): E11.9 - TYPE 2 DIABETES MELLITUS WITHOUT COMPLICATIONS SNOMED Code(s): 33968261 Comment: - Finger sticks AC - Lispro sliding scale - will add lantus as Blood sugars remain in the 200-300's range. (5) HTN (hypertension) Current Visit: No Status: Acute Code(s): I10 - ESSENTIAL (PRIMARY) HYPERTENSION SNOMED Code(s): 61113282 Comment: - stable - restarted losartan (6) DVT prophylaxis Current Visit: No Status: Acute Code(s): TMG4354 - SNOMED Code(s): 583690011 Comment: - SubQ Heparin (7) Full code status Current Visit: No Status: Acute Code(s): Z78.9 - OTHER SPECIFIED HEALTH STATUS SNOMED Code(s): 341213942 Status and Disposition: inpatient - D/c to home after PICC placement
[2019-10-01] MEDS: Vancomycin(*) 1,000 MG in NS 0.9% 250 ML* 250 ML IV SCH ×2 (14:46→21:43)
[2019-10-01] MEDS: Insulin GLARGINE(*) 1 UNITS UNIT SUBCUT SCH (14:46)
[2019-10-01] MEDS: Enoxaparin(*) 40 MG/0.4 ML SYR SUBCUT SCH (20:55)
[2019-10-02] MEDS: Vancomycin(*) 1,000 MG in NS 0.9% 250 ML* 250 ML IV SCH ×3 (02:44→13:52)
[2019-10-02] MEDS: Cefepime 2 GM in Dextrose(*) 2 GM/50 ML BAG IV SCH (07:45)
--- NOTE | 2019-10-02 08:55 | PN ---
Progress Note - Progress Note Date of Service: 10/02/19 SOAP: Subjective: CC: right foot infection HPI: 59 year old man with right foot ulcer and cellulitis , small abscess, osteomyelitis; foot pain improved and swelling decreasing. No fever, rash, or diarrhea. Objective: Vital Signs Temp 36.4 C 10/02/19 02:54 Pulse 82 10/02/19 02:54 Resp 16 10/02/19 02:54 BP 149/82 10/02/19 02:54 Pulse Ox 99 10/02/19 02:54 Intake & Output 10/01/19 10/02/19 10/02/19 18:59 06:59 18:59 Intake Total 1953 630 Balance 1953 630 Intake: IV Fluids 52 570 Cefepime 50 NS (0.9%) 52 520 IVPB 582 60 ABX - VANCOMYCIN 526 Cefepime 56 20 NS (0.9%) 40 Oral 1320 0 Other: Date of Last Bowel [id number] Movement # Bowel Movements 1 Estimated Stool Amount Medium # Voids 2 Gen:awake, no distress HEENT:no thrush Heart:Regular no murmur Lungs:CTA BL Abd:+BS NTND soft Skin: No rash MSK: right foot trace edema, plantar ulcer slight serous drainage Laboratory Results - last 24 hr 10/01/19 07:34 Potassium 4.2 Anion Gap 5 Microbiology 09/27/19 16:13 Blood Venous Aerobic Blood Culture - Preliminary No Growth Day 4 09/27/19 16:13 Blood Venous Anaerobic Blood Culture - Preliminary No Growth Day 4 09/27/19 15:44 Blood Venous Aerobic Blood Culture - Preliminary No Growth Day 4 09/27/19 15:44 Blood Venous Anaerobic Blood Culture - Final Gemella Morbillorum 09/27/19 15:44 Blood Venous Blood MRSA/MSSA (PCR) - Final Mrsa Negative S.aureus Negative 09/27/19 18:19 Foot Right Skin and Soft Tissue MRSA/MSSA (PCR - Final Mrsa Positive S.aureus Positive 09/27/19 18:19 Foot Right Gram Stain - Final 09/27/19 18:19 Foot Right Wound Culture - Final Proteus Mirabilis Strep Agalactiae - (Group B) Assessment: 1. MRSA chronic osteomyelitis, abscess, cellulitis; he refuses I&D, understands may relapse and the risk is highest when he stops antibiotics. 2. Diabetes with neuropathy 3. obesity 4. leukopenia probably related to antibiotics Plan: 1. daptomycin 500 mg IV daily for 40 more days, augmentin 500 mg by mouth twice daily for 2 more weeks. Weekly cbc, cmp, crp, ck, picc (ordered). 35 minutes floor time >50% face to face in counseling regarding abx plans and chance of recurrence discussion.
[2019-10-02] MEDS: Losartan TAB* 25 MG PO SCH (09:04)
[2019-10-02] MEDS: Aspirin 81 mg CHEW TAB* 81 MG TAB.CHEW PO SCH (09:05)
[2019-10-02] MEDS: Insulin LISPRO* 1 UNITS UNIT SUBCUT SCH ×2 (09:05→12:17)
--- NOTE | 2019-10-02 10:48 | PN ---
Subjective Date of Service: 10/02/19 Interval History: Time spent on discharge including exam of patient, discussion with patient, nurse, CM, Dr. Carmen, review of EHR and preparation of discharge documents is 45 minutes. Family History: Unchanged from Admission Social History: Unchanged from Admission Past Medical History: Unchanged from Admission Objective Active Medications: Acetaminophen (Tylenol Tab*) 650 mg PO Q4H PRN PRN Reason: MILD PAIN or TEMP > 100.4 Aspirin (Aspirin 81 Mg Chew Tab*) 81 mg PO DAILY [facility] Last Admin: 10/02/19 09:05 Dose: 81 mg Dextrose (Dextrose 50% Vial 50 Ml*) 25 ml IV PUSH .FOR FS < 60 - SS PRN PRN Reason: FS < 60 Enoxaparin Sodium (Lovenox(*)) 40 mg SUBCUT Q24H [facility] Last Admin: 10/01/19 20:55 Dose: 40 mg Vancomycin HCl 1,000 mg/ (Sodium Chloride) 250 mls @ 166.667 mls/hr IV Q6H [facility] Last Admin: 10/02/19 09:30 Dose: 166.667 mls/hr Ceftriaxone Sodium 2 gm/ (Sodium Chloride) 100 mls @ 200 mls/hr IVPB Q24H [facility] Insulin Glargine (Lantus(*)) 5 units SUBCUT Q24H [facility] Last Admin: 10/01/19 14:46 Dose: 5 unit Insulin Human Lispro (Humalog*) 0 units SUBCUT AC [facility]; Protocol Last Admin: 10/02/19 09:05 Dose: 1 units Losartan Potassium (Cozaar Tab*) 50 mg PO DAILY [facility] Last Admin: 10/02/19 09:04 Dose: 50 mg Metformin HCl (Glucophage*) 1,000 mg PO BID WITH MEALS [facility] Pharmacy Consult (Vancomycin Per Pharmacy*) 1 note FOLLOW UP .VANC PER PHARMACY [facility]; Protocol Pharmacy Profile Note (Vancomycin Trough Check) 1 note FOLLOW UP ONCE ONE Stop: 10/03/19 07:31 Pioglitazone HCl (Actos Tab*) 30 mg PO DAILY [facility] Sitagliptin Phosphate (Januvia (Nf)) 100 mg PO DAILY [facility]; Protocol Vital Signs - 8 hr 10/02/19 02:54 Temperature 97.6 F Pulse Rate 82 Respiratory 16 Rate Blood Pressure 149/82 (mmHg) O2 Sat by Pulse 99 Oximetry Oxygen Devices in Use Now: None Result Diagrams: 10/01/19 07:34 10/01/19 07:34 Microbiology and Other Data: Microbiology 09/27/19 15:44 Aerobic Blood Culture - Preliminary Blood Venous No Growth Day 1 Anaerobic Blood Culture - Preliminary No Growth Day 1 09/27/19 18:19 Skin and Soft Tissue MRSA/MSSA (PCR - Final Foot Right Mrsa Positive S.aureus Positive Gram Stain - Final Wound Culture - Preliminary Proteus Mirabilis Assess/Plan/Problems-Billing Assessment: Mr. Andrews is a 59 y.o male with a pmhx significant for DM type II and htn who presented to the ER with fever an chills found tohave ulcer to the plantar aspect of the right foot with purulent drainage. Met sepsis criteria with fever , tachycardia and cellulitis / ulcer to the right foot. Status and Disposition: inpatient - D/c to home after PICC placement
[2019-10-02] MEDS ORDERED: CMCS - SitaGLIPtin (NF) 100 MG TAB PO SCH (11:00)
[2019-10-02] MEDS ORDERED: Pioglitazone TAB* 30 MG PO SCH (11:00)
--- NOTE | 2019-10-02 12:11 | DS ---
CC: Dr. Perez; Dr. Carmen DISCHARGE SUMMARY: DATE OF ADMISSION: 09/27/19 DATE OF DISCHARGE: 10/02/19 HISTORY OF PRESENT ILLNESS/HOSPITAL COURSE: This 59-year-old man presented with fever and pain in the right foot. MRI showed multifocal osteomyelitis of the right foot. He was seen in consultation by Dr. Carmen and the orthopedic service. He was treated in the hospital with ceftriaxone and vancomycin. He will be discharged on daptomycin for 5 more weeks, and amoxicillin/clavulanate orally for 2 weeks. He will be followed up by Dr. Carmen. He had an arterial study of the lower extremities. There was normal right ankle - brachial index on the right and slightly depressed on the left, unchanged from the previous study. FINAL DIAGNOSES: 1. Osteomyelitis and cellulitis of right foot. 2. Diabetes. 3. Hypertension. DISCHARGE MEDICATIONS: 1. Amoxicillin/clavulanate 500 mg b.i.d. for 14 days. 2. Glipizide 5 mg b.i.d. 3. Losartan 50 mg daily. 4. Metformin 1000 mg b.i.d. 5. Acetaminophen 650 mg every 4 hours p.r.n. 6. Dapagliflozin 10 mg daily. 7. Aspirin 81 mg daily. 8. Sitagliptin 100 mg daily. 9. Sildenafil 50 to 100 mg as prescribed. 10. Pioglitazone 30 mg daily. 11. Daptomycin 500 mg IV daily for 40 more days. CONDITION ON DISCHARGE: Improved. DISPOSITION ON DISCHARGE: Discharged home. [id number]/CPS #: [id number] MTDD
[2019-10-02] MEDS: metFORMIN* 1,000 MG TAB PO SCH ×2 (12:14→16:34)
[2019-10-02] MEDS: Insulin GLARGINE(*) 1 UNITS UNIT SUBCUT SCH (13:51)
[2019-10-02 16:20] VITALS: BP 138/72
[2019-10-02] MEDS ORDERED: cefTRIAXone(*) 2 GM in NS 0.9% 100 ML* 100 ML IVPB SCH (18:00)
[2019-10-03] MEDS ORDERED: Vancomycin Trough Check NOTE FOLLOW UP ONE (07:30)
== END 2019-10-02 16:40 | disposition home or self-care (01) | DRG 720 ==
LOC: ED 14:26 → MED 18:20
PROVIDERS: ADMIT Internal Medicine; ATTEND Internal Medicine
PROC: 05HY33Z Insertion of Infusion Device into Upper Vein, Percutaneous Approach (ICD-10-PCS; principal; 2019-10-02)
DX: A41.9 Sepsis, unspecified organism (principal); L02.611 Cutaneous abscess of right foot; M86.171 Other acute osteomyelitis, right ankle and foot; L03.115 Cellulitis of right lower limb; E11.621 Type 2 diabetes mellitus with foot ulcer; E11.42 Type 2 diabetes mellitus with diabetic polyneuropathy; E11.69 Type 2 diabetes mellitus with other specified complication; E66.9 Obesity, unspecified; B95.62 Methicillin resistant Staphylococcus aureus infection as the cause of diseases classified elsewhere; B95.1 Streptococcus, group B, as the cause of diseases classified elsewhere; I10 Essential (primary) hypertension; D70.2 Other drug-induced agranulocytosis; T36.95XA Adverse effect of unspecified systemic antibiotic, initial encounter; Y92.230 Patient room in hospital as the place of occurrence of the external cause; Z79.84 Long term (current) use of oral hypoglycemic drugs; Z79.899 Other long term (current) drug therapy; Z82.49 Family history of ischemic heart disease and other diseases of the circulatory system; Z68.30 Body mass index [BMI] 30.0-30.9, adult
CPT/HCPCS: 36415; 71045; 80048; 80053; 80202; 81003; 82565; 83036; 83605; 84520; 85025; 85027; 86140; 87040; 87070; 87077; 87150; 87186; 87205; 87640; 87641; 93005; 93922; 96365; 99284; A9270-GY; C1751; J0692; J0696; J1650; J3370